=== PATIENT | male | born 1945 | race Caucasian/White ===

== ENCOUNTER → 2021-01-27 00:42 | Outpatient (CLI) | payer MEDICARE, OTHER, SELFPAY ==
[2021-01-27 20:54] LABS: SARS-CoV-2 RNA PCR Negative
== END ==
PROVIDERS: PCP Internal Medicine; Visit Provider Internal Medicine Gastroenterology
DX: Z01.812 Encounter for preprocedural laboratory examination (principal); Z20.822 Contact with and (suspected) exposure to COVID-19
CPT/HCPCS: C9803; U0003; U0005

== ENCOUNTER 2021-01-30 01:18 | Day surgery (SDC) | payer MEDICARE, OTHER, SELFPAY ==
[2021-01-18 10:09] VITALS: BMI 35.1
[2021-01-30 06:59] VITALS: BP 181/84; PULSE 74; RESP 16; TEMP 36.5; O2SAT 95; BMI 35.1
[2021-01-30] MEDS: LACTATED RINGERS 1,000 ML 150 ML IV CONT (07:19)
--- NOTE | 2021-01-30 07:23 | PM.HPGS ---
History of Present Illness History of Present Illness Consent: Risks, benefits, and alternatives have been discussed and questions answered. Patient agrees to proceed with procedure. Chief complaint: hx colon CA Narrative: Graham Torres is a 75 year old male Here for colon cancer screening. He has a history of having had colon cancer many years ago. Review of Systems Review of Systems: All systems reviewed & are unremarkable except as noted in HPI and below PMFSH Past Medical History Medical History History of colon cancer in adulthood History of prostate cancer Irritable bowel syndrome with constipation Family History Family History Other Diabetes mellitus Family history of malignant neoplasm Social History Social History Smoking packs per day: 1 Smoking cigarettes per day: 20.0 Years smoked: 25 Smoking pack-years: 25.00 Smoking status: Former smoker Tobacco type: cigarettes Alcohol intake: never Substance use: never Substance use type: does not use Living arrangements: with family Spiritual care concerns: No Meds Home Medications and Allergies Home Medications Medication Instructions Recorded Confirmed Type aspirin 81 mg tablet,delayed 81 mg PO DAILY 12/05/20 01/30/21 History release carvedilol 25 mg tablet 25 mg PO Q12H 12/05/20 01/30/21 History finasteride 5 mg tablet 5 mg PO DAILY 12/05/20 01/30/21 History lisinopril 10 mg tablet 10 mg PO BID 12/05/20 01/30/21 History warfarin 5 mg tablet 5 mg PO USEASDIRECTD 12/05/20 01/30/21 History warfarin 7.5 mg tablet 7.5 mg PO WEEKLY 12/05/20 01/30/21 History flecainide 100 mg PO BID 01/18/21 01/30/21 History Allergies Allergy/AdvReac Type Severity Reaction Status Date / Time No Known Allergies Allergy SEE NOTES Verified 01/30/21 06:59 Vital Signs Vital Signs - 24 hr 01/30/21 06:59 Temperature 36.5 C Pulse Rate 74 Respiratory Rate 16 Blood Pressure 181/84 H Pulse Oximetry 95 Exam Const: General: alert Orientation/consciousness: patient oriented x3 Resp: Auscultation: clear to auscultation bilaterally Cardio: Rhythm: regular rhythm GI: GI Palp: Yes Soft to palpation and No Tenderness to palpation present (GI) Neuro: General: patient oriented x3 Assessment and Plan Assessment and plan (1) Colon cancer screening: Code(s): Z12.11 - Encounter for screening for malignant neoplasm of colon Status: Acute Assessment and Plan: Colonoscopy with possible biopsy or polypectomy or cautery or injection of substances.
--- NOTE | 2021-01-30 07:37 | WPDANESEPPF ---
Anes - Initial Pre Proc Eval Procedure: Operation Date: 01/30/21 08:00 Proposed Procedures p Screening Colonoscopy - Sarath Reid MD Date/Time: 01/30/21 07:37 Surgeon: Sarath Reid MD Pre Op Diagnosis: hx colon CA Patient Data Age: 75 Gender: M Height: 5 ft 10 in Weight: 111.1 kg Last Vital Signs Temp 97.7 F 01/30/21 06:59 Pulse 74 01/30/21 06:59 Resp 16 01/30/21 06:59 BP 181/84 H 01/30/21 06:59 Pulse Ox 95 01/30/21 06:59 Allergies Allergy/AdvReac Type Severity Reaction Status Date / Time No Known Allergies Allergy SEE NOTES Verified 01/30/21 06:59 Home Medications Medication Instructions Recorded Confirmed Type aspirin 81 mg tablet,delayed 81 mg PO DAILY 12/05/20 01/30/21 History release carvedilol 25 mg tablet 25 mg PO Q12H 12/05/20 01/30/21 History finasteride 5 mg tablet 5 mg PO DAILY 12/05/20 01/30/21 History lisinopril 10 mg tablet 10 mg PO BID 12/05/20 01/30/21 History warfarin 5 mg tablet 5 mg PO USEASDIRECTD 12/05/20 01/30/21 History warfarin 7.5 mg tablet 7.5 mg PO WEEKLY 12/05/20 01/30/21 History flecainide 100 mg PO BID 01/18/21 01/30/21 History Laboratory Tests 01/30/21 07:10 PT Pending INR Pending Patient hx anesthesia problems: none Family hx anesthesia problems: none PMFSH Past Medical History Medical History History of colon cancer in adulthood History of prostate cancer Irritable bowel syndrome with constipation Family History Family History Other Diabetes mellitus Family history of malignant neoplasm Social History Social History Smoking packs per day: 1 Smoking cigarettes per day: 20.0 Years smoked: 25 Smoking pack-years: 25.00 Smoking status: Former smoker Tobacco type: cigarettes Alcohol intake: never Substance use: never Substance use type: does not use Living arrangements: with family Spiritual care concerns: No Anes - Eval Final PreProcedure Day of Procedure 01/30/21 07:37 Patient weight: obese Heart: regular rate and rhythm Lungs: clear to auscultation Airway: Mallampati scale class II Neurological: alert and oriented Last oral intake: >/= 8 hours ASA classification: III Emergent: no Anesthetic plan: proceed Anesthesia type and monitoring: general GIVS and standard monitoring Informed Consent: The patient's anesthetic plan and its attendant risks and benefits were discussed with the patient/family/POA. Questions were solicited and answers provided to the satisfaction of the patient/family/POA.
[2021-01-30 07:38] LABS: INR 1.3; Prothrombin Time 16.9 Seconds (11.1-14.7)
[2021-01-30 08:16] VITALS: BP 152/75; PULSE 69; RESP 18; O2SAT 98
[2021-01-30 08:26] VITALS: BP 154/65; PULSE 70; RESP 16; O2SAT 96
[2021-01-30 08:36] VITALS: BP 153/68; PULSE 68; RESP 18; O2SAT 98
== END 2021-01-30 08:58 | disposition home or self-care (01) ==
PROVIDERS: PCP Internal Medicine; Visit Provider Internal Medicine Gastroenterology
PROC: 0DJD8ZZ Inspection of Lower Intestinal Tract, Via Natural or Artificial Opening Endoscopic (ICD-10-PCS; CPT 45378; principal; 2021-01-30 08:00)
DX: Z12.11 Encounter for screening for malignant neoplasm of colon (principal); D12.5 Benign neoplasm of sigmoid colon; Z85.038 Personal history of other malignant neoplasm of large intestine; K58.1 Irritable bowel syndrome with constipation; I48.91 Unspecified atrial fibrillation; Z79.01 Long term (current) use of anticoagulants; Z85.46 Personal history of malignant neoplasm of prostate; Z87.891 Personal history of nicotine dependence
CPT/HCPCS: 45385; 36415; 85610; 88305; J2704; J7120

== ENCOUNTER 2022-05-28 09:22 | Outpatient (CLI) | payer MEDICARE, OTHER, SELFPAY ==
--- NOTE | 2022-05-28 10:07 | ECHO_ITS ---
Patient Info Name: Graham Torres Age: 77 years : 1945 Gender: Male Ht: 70 in Wt: 251 lbs BSA: 2.41 m2 HR: 56 bpm BP: 178 / 97 mmHg Heart Rhythm: Sinus Rhythm Exam Date: 05/28/2022 10:31 AM Exam Location: [facility] Patient Status: Outpatient Admit Date: 05/28/2022 Staff Ordering Physician: Placido Mauro MD Metaphysicist: [address] [place] RDCS Attending Provider: Placido Mauro MD Referring Physician: Nj MESA; Exam Type: CA echo doppler color flow Study Info Indications R60.0 - Localized edema Complete two-dimensional, color flow and Doppler transthoracic echocardiogram is performed. Summary 1. Complete two-dimensional, color flow and Doppler transthoracic echocardiogram is performed. 2. Left ventricular chamber dimension is normal. 3. Left ventricular systolic function is normal, estimated at 60-65%. 4. There is mildly increased left ventricular wall thickness. 5. Left ventricular septal wall motion is abnormal with septal motion related to bundle branch block. 6. The left ventricular diastolic function is grade I diastolic dysfunction. 7. Left atrial chamber dimension is moderately enlarged. 8. There is trace mitral valve regurgitation. 9. There is trace tricuspid valve regurgitation. 10. Unable to estimate PA systolic pressure due to poor spectral resolution of tricuspid regurgitant jet velocity. 11. There is no aortic valve stenosis. Left Ventricle Left ventricular chamber dimension is normal. Left ventricular systolic function is normal, estimated at 60-65%. There is mildly increased left ventricular wall thickness. Left ventricular septal wall motion is abnormal with septal motion related to bundle branch block. The left ventricular diastolic function is grade I diastolic dysfunction. Right Ventricle Right ventricular chamber dimension is normal. Right ventricular systolic function is normal. Left Atria Left atrial chamber dimension is moderately enlarged. Right Atria Right atrial chamber dimension is mildly enlarged. Aortic Valve The aortic valve is not well visualized. There is no aortic valve stenosis. There is no aortic valve regurgitation. Pulmonic Valve The pulmonic valve is not well visualized. Mitral Valve The mitral valve has thickened leaflets. There is trace mitral valve regurgitation. The mitral valve annulus is mildly calcified. Tricuspid Valve The tricuspid valve leaflets are normal. There is trace tricuspid valve regurgitation. Unable to estimate PA systolic pressure due to poor spectral resolution of tricuspid regurgitant jet velocity. Pericardium/Pleural The pericardium appears normal. There is no pericardial effusion. Aorta The aortic root size at the sinus of Valsalva is normal. There is mild aortic atherosclerosis. Left Ventricular Outflow Tract Name Value Normal LVOT 2D LVOT Diameter 2.0 cm LVOT Doppler LVOT Peak Gradient 3 mmHg LVOT Mean Gradient 2 mmHg LVOT VTI 22 cm LVOT VTI/AV VTI Ratio 0.7
== END 2022-05-28 09:23 | disposition home or self-care (01) ==
LOC: ANHCARD 09:24
PROVIDERS: PCP Family Medicine; Visit Provider Family Medicine
DX: R60.0 Localized edema (principal); I51.7 Cardiomegaly
CPT/HCPCS: 93306

== ENCOUNTER 2023-04-24 03:42 | Day surgery (SDC) | payer MEDICARE, OTHER, SELFPAY ==
[2023-04-14 13:44] VITALS: BMI 35.9
--- NOTE | 2023-04-18 10:35 | PC.NURSE ---
SPOKE WITH PT. REGARDING WARFARIN, WILL HOLD AFTER DOSE ON 04/19/2023.
--- NOTE | 2023-04-23 16:21 | P.HP_ITS ---
History of Present Illness History of Present Illness Consent: Risks, benefits, and alternatives have been discussed and questions answered. Patient agrees to proceed with procedure. Chief complaint: anemia Narrative: Graham Torres is a 77 year old male Who was referred for investigation of severe anemia. His hemoglobin is 8.7 and hematocrit 29.5 he states that he was not aware of the anemia. He has a history of colon cancer. He has states he is here only for EGD because there was a suspicion that he might be losing blood. He believes it has been 3 years since his last colonoscopy [facility]. Review of Systems Review of Systems: All systems reviewed & are unremarkable except as noted in HPI and below PMFSH Past Medical History Medical History A-fib Gout History of colon cancer in adulthood History of prostate cancer Hypertension Irritable bowel syndrome with constipation Testosterone deficiency Venous stasis Surgical History Surgical History H/O knee surgery History of appendectomy Hx of cholecystectomy Family History Family History Other Diabetes mellitus Family history of malignant neoplasm Social History Social History Smoking packs per day: 1 Smoking cigarettes per day: 20.0 Years smoked: 25 Smoking pack-years: 25.00 Smoking status: Former smoker Tobacco type: cigarettes Alcohol intake: current Alcohol use details: [facility] beer Substance use: never Substance use type: does not use Living arrangements: with family Occupation/Education: retired Spiritual care concerns: No Agree to blood products: Yes Meds Home Medications and Allergies Home Medications Medication Instructions Recorded Confirmed Type aspirin 81 mg tablet,delayed 81 mg PO BID 12/05/20 04/14/23 History release (Adult Aspirin Regimen) carvedilol 25 mg tablet 25 mg PO Q12H 12/05/20 04/24/23 History lisinopril 10 mg tablet 10 mg PO BID 12/05/20 04/14/23 History warfarin 5 mg tablet 5 mg PO DAILY 12/05/20 04/24/23 History flecainide 100 mg tablet 100 mg PO BID 01/18/21 04/14/23 History furosemide 40 mg tablet (Lasix) 40 mg PO QAM #30 tabs 05/20/22 04/14/23 Rx finasteride 5 mg tablet 5 mg PO DAILY #90 tabs 01/15/23 04/14/23 Rx Allergies Allergy/AdvReac Type Severity Reaction Status Date / Time clindamycin AdvReac Mild Hives Verified 04/24/23 08:42 Exam Const: General: alert Orientation/consciousness: patient oriented x3 Resp: Auscultation: clear to auscultation bilaterally Cardio: Rhythm: regular rhythm GI: GI Palp: Yes Soft to palpation and No Tenderness to palpation present (GI) Neuro: General: patient oriented x3 Assessment and Plan Assessment and plan (1) Anemia: Code(s): D64.9 - Anemia, unspecified Status: Acute Assessment and Plan: EGD with possible biopsy or dilatation or cautery.Colonoscopy with possible biopsy or polypectomy or cautery or injection of substances.
[2023-04-24 08:44] VITALS: BP 127/55; PULSE 60; RESP 18; TEMP 36.2; O2SAT 98
[2023-04-24] MEDS: LACTATED RINGERS 1,000 ML 150 ML IV CONT (08:56)
--- NOTE | 2023-04-24 09:25 | WPDANESEPPF ---
Anes - Initial Pre Proc Eval Procedure: Operation Date: 04/24/23 10:45 Proposed Procedures p Esophagogastroduodenoscopy - Sarath Reid MD Date/Time: 04/24/23 09:25 Surgeon: Sarath Reid MD Pre Op Diagnosis: anemia Patient Data Age: 77 Gender: M Height: 1.78 m Weight: 110.9 kg Last Vital Signs Temp 97.2 F L 04/24/23 08:44 Pulse 60 04/24/23 08:44 Resp 18 04/24/23 08:44 BP 127/55 L 04/24/23 08:44 Pulse Ox 98 04/24/23 08:44 O2 Del Method Room Air 04/24/23 08:44 Allergies Allergy/AdvReac Type Severity Reaction Status Date / Time clindamycin AdvReac Mild Hives Verified 04/24/23 08:42 Home Medications Medication Instructions Recorded Confirmed Type aspirin 81 mg tablet,delayed 81 mg PO BID 12/05/20 04/14/23 History release (Adult Aspirin Regimen) carvedilol 25 mg tablet 25 mg PO Q12H 12/05/20 04/24/23 History lisinopril 10 mg tablet 10 mg PO BID 12/05/20 04/14/23 History warfarin 5 mg tablet 5 mg PO DAILY 12/05/20 04/24/23 History flecainide 100 mg tablet 100 mg PO BID 01/18/21 04/14/23 History furosemide 40 mg tablet (Lasix) 40 mg PO QAM #30 tabs 05/20/22 04/14/23 Rx finasteride 5 mg tablet 5 mg PO DAILY #90 tabs 01/15/23 04/14/23 Rx Patient hx anesthesia problems: none Family hx anesthesia problems: none Results Review: All pre-operative results and documents have been reviewed as part of the pre-operative evaluation. [facility] Past Medical History Medical History (Updated 04/23/23 @ 16:21 by Sarath Reid MD) A-fib Gout History of colon cancer in adulthood History of prostate cancer Hypertension Irritable bowel syndrome with constipation Testosterone deficiency Venous stasis Surgical History Surgical History H/O knee surgery History of appendectomy Hx of cholecystectomy Family History Family History Other Diabetes mellitus Family history of malignant neoplasm Social History Social History Smoking packs per day: 1 Smoking cigarettes per day: 20.0 Years smoked: 25 Smoking pack-years: 25.00 Smoking status: Former smoker Tobacco type: cigarettes Alcohol intake: current Alcohol use details: occ beer Substance use: never Substance use type: does not use Living arrangements: with family Occupation/Education: retired Spiritual care concerns: No Agree to blood products: Yes Anes - Eval Final PreProcedure Day of Procedure 04/24/23 09:25 Patient weight: obese Heart: regular rate and rhythm Lungs: clear to auscultation Airway: Mallampati scale class III Neurological: alert and oriented Last oral intake: >/= 8 hours ASA classification: III Emergent: no Anesthetic plan: proceed Anesthesia type and monitoring: general GIVS and standard monitoring Results Review: All pre-operative results and documents have been reviewed as part of the pre-operative evaluation. Informed Consent: The patient's anesthetic plan and its attendant risks and benefits were discussed with the patient/family/POA. Questions were solicited and answers provided to the satisfaction of the patient/family/POA.
[2023-04-24 10:34] VITALS: BP 97/49; PULSE 62; RESP 17; O2SAT 98
[2023-04-24 10:44] VITALS: BP 109/56; PULSE 60; RESP 20; O2SAT 98
[2023-04-24 10:54] VITALS: BP 144/63; PULSE 61; RESP 23; O2SAT 97
== END 2023-04-24 11:03 | disposition home or self-care (01) ==
PROVIDERS: PCP Family Medicine; Visit Provider Internal Medicine Gastroenterology
PROC: 0DJ08ZZ Inspection of Upper Intestinal Tract, Via Natural or Artificial Opening Endoscopic (ICD-10-PCS; CPT 43235; principal; 2023-04-24 10:45)
DX: K25.9 Gastric ulcer, unspecified as acute or chronic, without hemorrhage or perforation (principal); D64.9 Anemia, unspecified; I10 Essential (primary) hypertension; I48.91 Unspecified atrial fibrillation; M10.9 Gout, unspecified; Z79.82 Long term (current) use of aspirin; Z85.038 Personal history of other malignant neoplasm of large intestine; Z87.891 Personal history of nicotine dependence; Z79.01 Long term (current) use of anticoagulants; Z85.46 Personal history of malignant neoplasm of prostate; E66.9 Obesity, unspecified; Z68.35 Body mass index [BMI] 35.0-35.9, adult
CPT/HCPCS: 43239; 88305; 88342; J2704; J7120

== ENCOUNTER 2023-04-30 12:04 | Outpatient (CLI) | payer MEDICARE, OTHER, SELFPAY ==
--- NOTE | 2023-04-30 13:35 | ECG_ITS ---
Measurements Intervals [place] Rate: 57 P: -20 ND: 138 QRS: 20 QRSD: 116 T: 38 QT: 470 QTc: 460 Interpretive Statements SINUS BRADYCARDIA INTRAVENTRICULAR CONDUCTION DELAY EARLY PRECORDIAL R/S TRANSITION CONSIDER INFERIOR INFARCT, AGE INDETERMINATE BASELINE ARTIFACT- I, II, III, AVR, AVL, AVF, V1-V6 ABNORMAL ECG NO PREVIOUS ECG AVAILABLE FOR COMPARISON Electronically Signed On 04-30-2023 16:15:44 CDT by Vinayak Caldwell D.O.
[2023-04-30 14:23] LABS: Basophils Absolute Auto 0.1 K/mm3 (0.0-0.1); Basophils Percent Auto 0.7 % (0.2-1.2); Eosinophils Absolute Auto 0.4 K/mm3 (0-0.3); Eosinophils Percent Auto 5.1 % (0-4.4); Hematocrit 29.2 % (42.0-52.0); Hemoglobin 8.4 g/dL (14.0-18.0); Immature Granulocyte Absolute 0.03 K/mm3 (0.00-0.031); Immature Granulocyte Percent A 0.4 % (0-0.5); Lymphocytes Absolute Auto 1.27 K/mm3 (0.9-3.2); Lymphocytes Percent Auto 15.8 % (18.3-44.2); Mean Corpuscular HGB Conc 28.8 g/dl (32-36); Mean Corpuscular Hemoglobin 24.8 pg (26-34); Mean Corpuscular Volume 86.1 fl (80-100); Mean Platelet Volume 10.4 fl (7.4-10.4); Monocytes Absolute Auto 0.7 K/mm3 (0.1-0.6); Monocytes Percent Auto 8.7 % (2.6-8.5); Neutrophils Absolute Auto 5.6 K/mm3 (1.3-6.7); Neutrophils Percent Auto 69.3 % (45.5-73.1); Platelet Count Result 312 k/mm3 (150-375); Red Blood Count 3.39 M/mm3 (4.6-6.20); Red Cell Distribution Width 15.7 % (11.5-14.5)
[2023-04-30 14:32] LABS: Anion Gap 7 mmol/L (8-16); Blood Urea Nitrogen 20 mg/dL (9-20); Calcium 8.8 mg/dL (8.4-10.2); Carbon Dioxide 31 mmol/L (22-30); Chloride 104 mmol/L (98-107); Estimated Glomerular Filt Rate 42; Glucose 113 mg/dL (65-110); Potassium 4.3 mmol/L (3.4-5.0); Sodium 142 mmol/L (137-145)
[2023-04-30 14:33] LABS: INR 1.6; Prothrombin Time 20.6 Seconds (11.1-14.7)
[2023-04-30 14:47] LABS: Hemoglobin A1C 5.6 % (<5.7)
[2023-04-30 15:43] LABS: Platelet Estimate Adequate (Adequate)
[2023-04-30 15:44] LABS: Anisocytosis 2+ (NORMAL); Microcytosis 1+ (NORMAL); Schistocytes None Seen (NORMAL)
[2023-04-30 15:45] LABS: Hypochromasia 1+ (NORMAL)
[2023-04-30 17:07] LABS: Urine Cotinine NEGATIVE
== END 2023-04-30 12:05 | disposition home or self-care (01) ==
LOC: ANHSURGERY 12:09
PROVIDERS: Anesthesiology; PCP Family Medicine; Visit Provider Orthopaedic Surgery
DX: Z01.818 Encounter for other preprocedural examination (principal); M16.12 Unilateral primary osteoarthritis, left hip; R00.1 Bradycardia, unspecified; I45.89 Other specified conduction disorders; R94.31 Abnormal electrocardiogram [ECG] [EKG]; Z79.01 Long term (current) use of anticoagulants
CPT/HCPCS: 80048; 80307; 82040; 83036; 85025; 85610; 85730; 86850; 86900; 86901; 87081; 93005

== ENCOUNTER 2023-06-05 11:10 | Outpatient (RCR) | payer MEDICARE, OTHER, SELFPAY ==
[2023-03-31 11:03] LABS: INR 3.2; Prothrombin Time 35.6 Seconds (11.1-14.7)
[2023-05-20 10:47] LABS: INR 4.1; Prothrombin Time 43.1 Seconds (11.1-14.7)
[2023-06-05 12:13] LABS: INR 2.6; Prothrombin Time 29.7 Seconds (11.1-14.7)
== END 2023-06-29 23:59 | disposition home or self-care (01) ==
LOC: ANHLAB 11:10
PROVIDERS: PCP Family Medicine; Visit Provider Specialist
DX: Z51.81 Encounter for therapeutic drug level monitoring (principal); I48.91 Unspecified atrial fibrillation; Z79.01 Long term (current) use of anticoagulants
CPT/HCPCS: 36415; 85610

== ENCOUNTER 2023-06-18 00:13 | Day surgery (SDC) | payer MEDICARE, OTHER, SELFPAY ==
[2023-06-13 11:46] VITALS: BMI 37.9
--- NOTE | 2023-06-17 18:23 | PM.HPGS ---
History of Present Illness History of Present Illness Consent: Risks, benefits, and alternatives have been discussed and questions answered. Patient agrees to proceed with procedure. Chief complaint: anemia Narrative: Graham Torres is a 78 year old male Referred for investigation of anemia and follow-up of gastric ulcers found 2 months ago. Review of Systems Review of Systems: All systems reviewed & are unremarkable except as noted in HPI and below PMFSH Past Medical History Medical History A-fib Gout History of colon cancer in adulthood History of prostate cancer Hypertension Irritable bowel syndrome with constipation Testosterone deficiency Venous stasis Surgical History Surgical History H/O knee surgery History of appendectomy Hx of cholecystectomy Family History Family History Other Diabetes mellitus Family history of malignant neoplasm Social History Social History Smoking packs per day: 1 Smoking cigarettes per day: 20.0 Years smoked: 25 Smoking pack-years: 25.00 Smoking status: Former smoker Tobacco type: cigarettes Smoking end date: 10/06/91 Additional smoking assessment comments: USED CHEWING TOBACCO FOR A TOOTH ACHE ABOUT ONE YEAR AGO. DENIES ANY FORM O Alcohol intake: current Drinks per week: 2 Alcohol use details: occ beer Substance use: never Substance use type: does not use Lack of Transportation: No Lack of Food: Never True Current Housing: I Have Housing Concerned About Future Housing: No Difficulty Paying Gas/Electric Bills: No Difficulty Paying for Meds: No Currently Unemployed: No Education: High School Diploma/GED Difficulty w/ Childcare or Family Care: No Living arrangements: with family Occupation/Education: retired Gender identity (if verbalized by the patient): Male Spiritual care concerns: No Agree to blood products: Yes Meds Home Medications and Allergies Home Medications Medication Instructions Recorded Confirmed Type carvedilol 25 mg tablet 25 mg PO Q12H 12/05/20 06/18/23 History warfarin 5 mg tablet 5 mg PO HS 12/05/20 06/18/23 History pantoprazole 40 mg tablet,delayed 40 mg PO QAM #30 tabs 04/24/23 06/13/23 Rx release amlodipine 5 mg tablet 5 mg PO DAILY 04/30/23 06/13/23 History calcium carbonate 600 mg calcium 600 mg PO DAILY 04/30/23 06/13/23 History (1,500 mg) tablet (Calcium) cholecalciferol (vitamin D3) 50 50 mcg PO DAILY 04/30/23 06/13/23 History mcg (2,000 unit) tablet lisinopril 40 mg tablet 40 mg PO DAILY 04/30/23 06/13/23 History flecainide 100 mg tablet 100 mg PO BID 05/06/23 06/18/23 History Iron (ferrous sulfate) 45 mg PO DAILY 06/13/23 06/13/23 History finasteride 5 mg tablet 5 mg PO HS 06/13/23 06/13/23 History Allergies Allergy/AdvReac Type Severity Reaction Status Date / Time clindamycin Allergy Mild Hives Verified 06/18/23 10:09 Exam Const: General: alert Orientation/consciousness: patient oriented x3 Resp: Auscultation: clear to auscultation bilaterally Cardio: Rhythm: regular rhythm GI: GI Palp: Yes Soft to palpation and No Tenderness to palpation present (GI) Neuro: General: patient oriented x3 Assessment and Plan Assessment and plan (1) Gastric ulcer: Code(s): K25.9 - Gastric ulcer, unspecified as acute or chronic, without hemorrhage or perforation Status: Acute Assessment and Plan: EGD with possible biopsy or dilatation or cautery. (2) Anemia: Code(s): D64.9 - Anemia, unspecified Status: Acute Assessment and Plan: Colonoscopy with possible biopsy or polypectomy or cautery or injection of substances.
[2023-06-18 10:11] VITALS: BP 128/84; PULSE 73; RESP 18; TEMP 36; O2SAT 100
--- NOTE | 2023-06-18 10:16 | WPDANESEPPF ---
Anes - Initial Pre Proc Eval Procedure: Operation Date: 06/18/23 11:30 Proposed Procedures p Esophagogastroduodenoscopy & Colonoscopy - Sarath Reid MD Date/Time: 06/18/23 10:16 Surgeon: Sarath Reid MD Pre Op Diagnosis: anemia Patient Data Age: 78 Gender: M Height: 1.75 m Weight: 113.9 kg Last Vital Signs Temp 36.0 C L 06/18/23 10:11 Pulse 73 06/18/23 10:11 Resp 18 06/18/23 10:11 BP 128/84 06/18/23 10:11 Pulse Ox 100 06/18/23 10:11 O2 Del Method Room Air 06/18/23 10:11 Allergies Allergy/AdvReac Type Severity Reaction Status Date / Time clindamycin Allergy Mild Hives Verified 06/18/23 10:09 Home Medications Medication Instructions Recorded Confirmed Type carvedilol 25 mg tablet 25 mg PO Q12H 12/05/20 06/18/23 History warfarin 5 mg tablet 5 mg PO HS 12/05/20 06/18/23 History pantoprazole 40 mg tablet,delayed 40 mg PO QAM #30 tabs 04/24/23 06/13/23 Rx release amlodipine 5 mg tablet 5 mg PO DAILY 04/30/23 06/13/23 History calcium carbonate 600 mg calcium 600 mg PO DAILY 04/30/23 06/13/23 History (1,500 mg) tablet (Calcium) cholecalciferol (vitamin D3) 50 50 mcg PO DAILY 04/30/23 06/13/23 History mcg (2,000 unit) tablet lisinopril 40 mg tablet 40 mg PO DAILY 04/30/23 06/13/23 History flecainide 100 mg tablet 100 mg PO BID 05/06/23 06/18/23 History Iron (ferrous sulfate) 45 mg PO DAILY 06/13/23 06/13/23 History finasteride 5 mg tablet 5 mg PO HS 06/13/23 06/13/23 History Patient hx anesthesia problems: none Family hx anesthesia problems: other Results Review: All pre-operative results and documents have been reviewed as part of the pre-operative evaluation. [facility] Past Medical History Medical History A-fib Gout History of colon cancer in adulthood History of prostate cancer Hypertension Irritable bowel syndrome with constipation Testosterone deficiency Venous stasis Surgical History Surgical History H/O knee surgery History of appendectomy Hx of cholecystectomy Family History Family History Other Diabetes mellitus Family history of malignant neoplasm Social History Social History Smoking packs per day: 1 Smoking cigarettes per day: 20.0 Years smoked: 25 Smoking pack-years: 25.00 Smoking status: Former smoker Tobacco type: cigarettes Smoking end date: 10/06/91 Additional smoking assessment comments: USED CHEWING TOBACCO FOR A TOOTH ACHE ABOUT ONE YEAR AGO. DENIES ANY FORM O Alcohol intake: current Drinks per week: 2 Alcohol use details: occ beer Substance use: never Substance use type: does not use Lack of Transportation: No Lack of Food: Never True Current Housing: I Have Housing Concerned About Future Housing: No Difficulty Paying Gas/Electric Bills: No Difficulty Paying for Meds: No Currently Unemployed: No Education: High School Diploma/GED Difficulty w/ Childcare or Family Care: No Living arrangements: with family Occupation/Education: retired Gender identity (if verbalized by the patient): Male Spiritual care concerns: No Agree to blood products: Yes Anes - Eval Final PreProcedure Day of Procedure 06/18/23 10:16 Patient weight: obese Heart: regular rate and rhythm Lungs: decreased breath sounds Airway: Mallampati scale class II Neurological: alert and oriented Last oral intake: >/= 8 hours ASA classification: III Emergent: no Anesthetic plan: proceed Anesthesia type and monitoring: general GIVS and standard monitoring Results Review: All pre-operative results and documents have been reviewed as part of the pre-operative evaluation. Informed Consent: The patient's anesthetic plan and its attendant risks and benefits were discussed with bhargav
[2023-06-18] MEDS: LACTATED RINGERS 1,000 ML 150 ML IV CONT (10:32)
--- NOTE | 2023-06-18 11:25 | SUR.OPER ---
EGD end: 1117 Colonoscopy start: 112
[2023-06-18 11:34] VITALS: BP 121/45; PULSE 68; RESP 20; O2SAT 100
[2023-06-18 11:44] VITALS: BP 118/43; PULSE 64; RESP 20; O2SAT 100
[2023-06-18 11:54] VITALS: BP 162/71; PULSE 68; RESP 20; O2SAT 100
== END 2023-06-18 12:12 | disposition home or self-care (01) ==
PROVIDERS: Visit Provider Internal Medicine Gastroenterology
PROC: 0DJ08ZZ Inspection of Upper Intestinal Tract, Via Natural or Artificial Opening Endoscopic (ICD-10-PCS; CPT 43235; principal; 2023-06-18 11:30)
DX: D64.9 Anemia, unspecified (principal); K63.3 Ulcer of intestine; Z85.038 Personal history of other malignant neoplasm of large intestine; Z98.0 Intestinal bypass and anastomosis status; Z90.49 Acquired absence of other specified parts of digestive tract; Z87.11 Personal history of peptic ulcer disease; I48.91 Unspecified atrial fibrillation; I10 Essential (primary) hypertension; K58.1 Irritable bowel syndrome with constipation; Z85.46 Personal history of malignant neoplasm of prostate; Z79.01 Long term (current) use of anticoagulants; Z87.891 Personal history of nicotine dependence; E66.9 Obesity, unspecified; Z68.37 Body mass index [BMI] 37.0-37.9, adult
CPT/HCPCS: 45380; 43239; 87081; 88305; J2704; J7120

== ENCOUNTER 2023-07-07 10:46 | Outpatient (CLI) | payer MEDICARE, OTHER, SELFPAY ==
[2023-07-07 11:15] LABS: Basophils Percent Auto 0.1 % (0.2-1.2); Eosinophils Percent Auto 0.1 % (0-4.4); Hematocrit 31.6 % (42.0-52.0); Hemoglobin 9.5 g/dL (14.0-18.0); Immature Granulocyte Absolute 0.07 K/mm3 (0.00-0.031); Immature Granulocyte Percent A 0.7 % (0-0.5); Lymphocytes Absolute Auto 0.58 K/mm3 (0.9-3.2); Lymphocytes Percent Auto 5.8 % (18.3-44.2); Mean Corpuscular HGB Conc 30.1 g/dl (32-36); Mean Corpuscular Hemoglobin 25.6 pg (26-34); Mean Corpuscular Volume 85.2 fl (80-100); Mean Platelet Volume 10.1 fl (7.4-10.4); Monocytes Absolute Auto 0.5 K/mm3 (0.1-0.6); Monocytes Percent Auto 4.8 % (2.6-8.5); Neutrophils Absolute Auto 8.9 K/mm3 (1.3-6.7); Neutrophils Percent Auto 88.5 % (45.5-73.1); Platelet Count Result 365 k/mm3 (150-375); Red Blood Count 3.71 M/mm3 (4.6-6.20); Red Cell Distribution Width 17.7 % (11.5-14.5)
[2023-07-07 11:22] LABS: Anisocytosis 1+ (NORMAL); Hypochromasia 1+ (NORMAL); Platelet Estimate Adequate (Adequate); Schistocytes None Seen (NORMAL)
[2023-07-07 11:23] LABS: Ovalocytes 1+ (NORMAL); Poikilocytosis 1+ (NORMAL)
[2023-07-07 13:22] LABS: Iron 13 ug/dL (49-181)
[2023-07-07 13:24] LABS: Alanine Aminotransferase 16 U/L (6-50); Alkaline Phosphatase 68 U/L (38-126); Anion Gap 11 mmol/L (8-16); Aspartate Amino Transferase 19 U/L (17-59); Bilirubin,Total 0.6 mg/dL (0.2-1.3); Blood Urea Nitrogen 48 mg/dL (9-20); Calcium 8.9 mg/dL (8.4-10.2); Carbon Dioxide 25 mmol/L (22-30); Chloride 102 mmol/L (98-107); Estimated Glomerular Filt Rate 35; Glucose 97 mg/dL (65-110); Potassium 4.4 mmol/L (3.4-5.0); Sodium 138 mmol/L (137-145)
[2023-07-07 13:46] LABS: Percent Iron Saturation 4 % (20-50)
[2023-07-07 14:41] LABS: Folic Acid 13.4 ng/mL (2.76->20)
[2023-07-09 16:30] LABS: Albumin 3.4 g/dL (3.8-4.8); Alpha 1 Globulin 0.4 g/dL (0.2-0.3); Beta 1 Globulin 0.5 g/dL (0.4-0.6); Gamma Globulin 0.9 g/dL (0.8-1.7); Protein, Total 6.6 g/dL (6.1-8.1)
[2023-07-10 06:34] LABS: Methylmalonic Acid 457 nmol/L (87-318)
[2023-07-15 18:43] LABS: Soluble Transferrin Receptor 3.17 mg/L (0.76-1.76)
== END 2023-07-07 10:47 | disposition home or self-care (01) ==
LOC: ANHLAB 10:49
PROVIDERS: Visit Provider Internal Medicine Hematology & Oncology
DX: D64.9 Anemia, unspecified (principal)
CPT/HCPCS: 36415; 80053; 82607; 82728; 82746; 83540; 83550; 83921; 84155; 84165; 84238; 85025

== ENCOUNTER 2023-09-05 12:36 | Outpatient (CLI) | payer MEDICARE, OTHER, SELFPAY ==
[2023-09-05 13:27] LABS: Anion Gap 8 mmol/L (8-16); Blood Urea Nitrogen 17 mg/dL (9-20); Calcium 9.1 mg/dL (8.4-10.2); Carbon Dioxide 30 mmol/L (22-30); Chloride 104 mmol/L (98-107); Estimated Glomerular Filt Rate 49; Glucose 104 mg/dL (65-110); Phosphorus 4.1 mg/dL (2.5-4.5); Potassium 4.3 mmol/L (3.4-5.0); Sodium 142 mmol/L (137-145)
[2023-09-05 13:32] LABS: Creatinine Urine 95.1 mg/dL; Total Protein Urine Random 15 mg/dL; Ur Ttl Prot Creatinine Ratio 0.16 mg/mg (0-0.20)
[2023-09-05 13:39] LABS: Parathyroid Intact 63.3 pg/mL (7.5-53.5)
[2023-09-05 15:01] LABS: Vitamin D 25 Hydroxy 26.5 ng/mL
== END 2023-09-05 12:37 | disposition home or self-care (01) ==
PROVIDERS: Visit Provider Internal Medicine Nephrology
DX: E55.9 Vitamin D deficiency, unspecified (principal); N25.81 Secondary hyperparathyroidism of renal origin; N18.32 Chronic kidney disease, stage 3b; I12.9 Hypertensive chronic kidney disease with stage 1 through stage 4 chronic kidney disease, or unspecified chronic kidney disease
CPT/HCPCS: 36415; 80069; 82306; 82570; 83970; 84156; 85610

== ENCOUNTER 2023-10-14 10:08 | Outpatient (RCR) | payer MEDICARE, OTHER, SELFPAY ==
[2023-07-25 09:48] LABS: INR 3.4; Prothrombin Time 37.2 Seconds (11.1-14.7)
[2023-09-05 13:28] LABS: INR 2.6; Prothrombin Time 30.1 Seconds (11.1-14.7)
[2023-10-14 10:35] LABS: Prothrombin Time 34.1 Seconds (11.1-14.7)
== END 2023-10-23 23:59 | disposition home or self-care (01) ==
LOC: ANHLAB 10:08
PROVIDERS: PCP Family Medicine; Visit Provider Specialist
DX: Z51.81 Encounter for therapeutic drug level monitoring (principal); I48.91 Unspecified atrial fibrillation; Z79.01 Long term (current) use of anticoagulants
CPT/HCPCS: 36415; 85610

== ENCOUNTER 2024-01-19 10:40 | Outpatient (CLI) | payer MEDICARE, OTHER, SELFPAY ==
--- NOTE | 2024-01-19 11:49 | ECG_ITS ---
SEE SCANNED COPY FOR CONFIRMED REPORT MTDD
[2024-01-19 12:10] LABS: Basophils Absolute Auto 0.1 K/mm3 (0.0-0.1); Basophils Percent Auto 0.7 % (0.2-1.2); Eosinophils Absolute Auto 0.5 K/mm3 (0-0.3); Eosinophils Percent Auto 6.8 % (0-4.4); Hematocrit 39.1 % (42.0-52.0); Hemoglobin 12.2 g/dL (14.0-18.0); Immature Granulocyte Absolute 0.02 K/mm3 (0.00-0.031); Immature Granulocyte Percent A 0.3 % (0-0.5); Lymphocytes Absolute Auto 1.06 K/mm3 (0.9-3.2); Lymphocytes Percent Auto 13.9 % (18.3-44.2); Mean Corpuscular HGB Conc 31.2 g/dl (32-36); Mean Corpuscular Hemoglobin 30.7 pg (26-34); Mean Corpuscular Volume 98.2 fl (80-100); Mean Platelet Volume 10.2 fl (7.4-10.4); Monocytes Absolute Auto 0.6 K/mm3 (0.1-0.6); Monocytes Percent Auto 7.7 % (2.6-8.5); Neutrophils Absolute Auto 5.4 K/mm3 (1.3-6.7); Neutrophils Percent Auto 70.6 % (45.5-73.1); Platelet Count Result 226 k/mm3 (150-375); Red Blood Count 3.98 M/mm3 (4.6-6.20); White Blood Count 7.6 K/mm3 (4.5-10.0)
[2024-01-19 12:32] LABS: Albumin Level 4.2 g/dL (3.5-5.1); Anion Gap 4 mmol/L (4-12); Blood Urea Nitrogen 24 mg/dL (9-20); Calcium 9.6 mg/dL (8.4-10.2); Carbon Dioxide 33 mmol/L (22-30); Chloride 105 mmol/L (98-107); Estimated Glomerular Filt Rate 49; Glucose 98 mg/dL (65-110); Potassium 4.8 mmol/L (3.4-5.0); Sodium 142 mmol/L (137-145)
[2024-01-19 12:33] LABS: Hemoglobin A1C 5.3 % (<5.7)
[2024-01-19 12:39] LABS: Urine Cotinine NEGATIVE
== END 2024-01-19 10:41 | disposition home or self-care (01) ==
LOC: ANHSURGERY 10:46
PROVIDERS: PCP Family Medicine; Visit Provider Orthopaedic Surgery
DX: Z01.818 Encounter for other preprocedural examination (principal); M16.12 Unilateral primary osteoarthritis, left hip
CPT/HCPCS: 36415; 80048; 80307; 82040; 83036; 85025; 87081; 93005

== ENCOUNTER 2024-01-30 12:45 | Outpatient (CLI) | payer MEDICARE, OTHER, SELFPAY ==
[2024-01-30 14:21] LABS: Vitamin D 25 Hydroxy 38.4 ng/mL
== END 2024-01-30 12:46 | disposition home or self-care (01) ==
PROVIDERS: PCP Family Medicine; Visit Provider Orthopaedic Surgery
DX: E55.9 Vitamin D deficiency, unspecified (principal)
CPT/HCPCS: 36415; 82306; 85610

== ENCOUNTER 2024-02-10 00:16 | Day surgery (SDC) | payer MEDICARE, OTHER, SELFPAY ==
[2024-01-19 10:55] VITALS: BMI 37.0
--- NOTE | 2024-01-19 11:26 | PC.NURSE ---
Report to the Outpatient Waiting Room, entrance under the green pavilion located off [facility], at time __0700 on date __02/10/24 . Planned Procedure Time: ___0900 . Time changes happen often and if your time is changed the preop area will call you the afternoon before. - You and your visitor will be asked to self-screen and do not enter if you have any COVID symptoms. - A mask is optional within the hospital at this time. Patients may have clear liquids (water, carbonated beverages, clear teas, apple juice) until 3 hours prior to surgery( 6:00AM) with a maximum of 20 ounces. - No food from midnight until time of surgery - Infants may have breast milk until 4 hours before surgery, formula 6 hours prior to surgery. - Children will be allowed to drink immediately following surgery. If applicable, please bring a bottle or sippy cup to assist with drinking. Juice, water, soda, and popsicles are readily available. For infants on formula, please bring formula the day of surgery. Pacifiers are allowed. Take the following medications with a SIP of water the morning of surgery: _AMLODIPINE,CARVEDILOL,FLECAINIDE DO NOT STOP ANY OF YOUR OTHER PRESCRIPTION MEDICATIONS PRIOR TO SURGERY ?EXCEPT THE FOLLOWING Medications to discontinue per physician __HOLD WARFARIN 5 DAYS PRE OP PER DR SERRANO,LAST DOSE02/04/24.HOLD ALL VITAMINS AND SUPPLEMENTS 3 DAYS PRE OP, LAST DOSE 02/06/24 Please no make-up, nail ukrainian, hairspray, perfume, deodorant, or body powder the day of surgery. No jewelry (including any body piercings) or valuables the day of surgery, leave them at home. Please take a shower or bath the night before, or the morning of, surgery with an antibacterial soap. Wear comfortable, loose fitting clothing. Children are encouraged to wear pajamas. - Jewelry must be removed prior to entering the operating room. Rings and piercings that are not removed may be cut off. - The hospital will not accept responsibility for valuables. - Please leave all valuables, including medications, at home the day of surgery. If you are going home after surgery, a licensed road driver must drive you home. - NO public transportation without another adult if you receive anesthesia. - We recommend that an adult stay with you for 24 hours following discharge. - We also recommend that you do not drive, make important decision, drink alcoholic beverages, or take any drugs that were not prescribed by your health care provider for at least 24 hours after your discharge time. Follow any additional instructions given to you from your surgeon. If you or anyone in your household have experienced Covid symptoms in the past week, please notify your surgeon or the nurse liaison at the phone number below for possible testing. VERBAL AND WRITTEN instructions given to ___PATIENT and asked if any additional questions and then verbalized understanding. Patient advised to call surgeon office or pre surgery nurse liaison [phone] if any additional questions.
[2024-01-19 11:45] VITALS: BP 126/71; PULSE 55; RESP 18; TEMP 36.7; O2SAT 97
--- NOTE | 2024-02-09 16:48 | PM.IMHP ---
H&P: HPI History of Present Illness Date/Time: 02/09/24 16:48 Chief Complaint: Advanced osteoarthritis left Narrative: patient is a 78-year-old gentleman was been suffering terribly due to extremely advanced osteoarthritis of the left. He had x-rays April 14 which showed advanced [id number] type 1 osteoarthritis large central subchondral cyst in the femoral head and prominent sclerotic changes and flattening of the superior femoral head. X-rays from January 06 of this year showed minimal change. Mild further flattening of femoral head is present. Patient has lost a little bit of weight. His 5 ft 63391 lb BMI of 35.7. His past medical history significant for anemia diagnosed last fall that caused this surgery would be postponed. His hemoglobin was 9.10 July 2023. Had extensive workup including EGD which showed no ulcer. Colonoscopy showed some superficial ulcers. Patient also has history of colon cancer. Dr. Alatorre concluded that he had iron deficiency anemia and this was treated with supplementation and most recent hemoglobin on January 18 his 12.2 and this has been stable. Patient has history of atrial fibrillation. He takes Coumadin chronically which will be held 5 days before surgery. Patient has 2+ pedal edema bilaterally 1+ pretibial edema bilaterally and this is chronic and he has been evaluated by Dr. Crane in preparation for surgery and his edema is thought primarily due to chronic venous stasis. Echocardiogram at [facility] 2021 showed ejection fraction between 60 and 65%. Patient has chronic kidney disease. His creatinine is 1.4 BUN 24 GFR 49. Because of his kidney disease and chronic lower extremity edema it is felt that nonsteroidal anti-inflammatory medication would be associated with excessive risk and therefore will not be used for heterotopic ossification prophylaxis after surgery but instead patient is to receive a single dose of 800 cGy of external beam radiation to the soft tissues about the hip the afternoon prior to his a.m. surgery. Patient also has history of severe gout affecting his ankles that has responded to oral steroids in the past he takes allopurinol chronically. [facility] Past Medical History Medical History (Updated 02/09/24 @ 16:55 by Jermaine Leon MD) A-fib Gout History of colon cancer in adulthood History of prostate cancer Hypertension Irritable bowel syndrome with constipation Testosterone deficiency Venous stasis Surgical History Surgical History (Updated 01/07/24 @ 09:45 by Elisabeth Jules CMA) H/O knee surgery bilateral TKA History of appendectomy History of colon resection Hx of cholecystectomy Family History Family History Other Diabetes mellitus Family history of malignant neoplasm Social History Social History (Updated 01/07/24 @ 09:47 by Elisabeth Jules [facility]) Smoking packs per day: 1 Smoking cigarettes per day: 20.0 Years smoked: 25 Smoking pack-years: 25.00 Smoking status: Former smoker Tobacco type: cigarettes Smoking end date: 10/06/91 Additional smoking assessment comments: DENIES ANY FORM OF TOBACCO USE Alcohol intake: former Substance use: never Substance use type: does not use Do You Feel Safe in your Home?: Yes Lack of Transportation: No Lack of Food: Never True Current Housing: I Have Housing Concerned About Future Housing: No Difficulty Paying Gas/Electric Bills: No Difficulty Paying for Meds: No Currently Unemployed: No Education: High School Diploma/GED Difficulty w/ Childcare or Family Care: No Living arrangements: with family Occupation/Education: retired Gender identity (if verbalized by the patient): Male Spiritual care concerns: No Agree to blood products: Yes Meds Home Medications and Allergies Home Medications Medication Instructions Recorded Confirmed Type carvedilol 25 mg tablet 25 mg
[2024-02-10] VITALS (17 sets, daily range): BP systolic 104–172; BP diastolic 54–94; PULSE 52–82; RESP 12–20; TEMP 35.6–36.6; O2SAT 94–99
--- NOTE | ~2024-02-10 | XR_ITS ---
EXAMINATION: XR surgery orthopedic DATE: 02/10/2024 11:18 INDICATION: Anterior approach total left hip arthroplasty. TECHNIQUE: 2 intraoperative fluoroscopic views of left hip were obtained. I was not present. Fluorosc opy exposure time was 45 seconds. COMPARISON: Left hip radiographs 01/07/2024 FINDINGS: There is a total left hip arthroplasty in near-anatomic alignment. No fracture. IMPRESSION: 1. Total left hip arthroplasty in near-anatomic alignment. Reviewed, dictated and finalized at location A.
--- NOTE | ~2024-02-10 | XR_ITS ---
EXAMINATION: XR hip LT 1V w AP pelvis DATE: 02/10/2024 12:33 INDICATION: Anterior approach left total hip arthroplasty. TECHNIQUE: Anteroposterior and cross-table lateral views of the left hip were obtained. COMPARISON: 01/07/2024 FINDINGS: Interval placement of a noncemented left total hip arthroplasty which appears well seated in near-raji tomic alignment. The acetabular component is affixed with a single screw. No fracture. Mild to modera te osteoarthritis at the right hip and bilateral sacroiliac joints. Severe lower lumbar spondylosis. A few phleboliths in the left pelvis. IMPRESSION: 1. Expected appearance of a left total hip arthroplasty negative for postoperative purposes. Reviewed, dictated and finalized at location A. IMPRESSION: 1. Expected appearance of a left total hip arthroplasty negative for postoperat bettina purposes.
[2024-02-10] MEDS: ACETAMINOPHEN 500 MG TABLET 1000 MG PO ×2 (06:25→18:24)
[2024-02-10] MEDS: TRANEXAMIC ACID 1,000MG/ISO100 1,000 MG/100 ML BAG 200 MG IVPB (06:30)
[2024-02-10] MEDS: VANCOMYCIN 1,500 MG/NS 500 ML BAG 250 MG IVPB (06:30)
[2024-02-10] MEDS: LACTATED RINGERS 1,000 ML 30 ML IV CONT ×2 (06:30→12:02)
[2024-02-10 06:58] LABS: INR 1.4; Prothrombin Time 17.8 Seconds (11.1-14.7)
--- NOTE | 2024-02-10 06:58 | WPDHPUPDATE1 ---
History and Physical Update Update Date/Time: 02/10/24 06:58 History and Physical has been reviewed, including an updated exam of the patient. There are NO changes in the patient's condition. Risks, benefits, and alternatives have been discussed and questions answered. Patient agrees to proceed with procedure.
[2024-02-10 06:59] LABS: Partial Thromboplastin Time 33.4 Seconds (22.3-36.8)
--- NOTE | 2024-02-10 07:17 | WPDANESEPPF ---
Anes - Initial Pre Proc Eval Procedure: Operation Date: 02/10/24 07:30 Proposed Procedures p Left Total Hip Arthroplasty, Direct Anterior Approach - Jermaine Leon MD Date/Time: 02/10/24 07:17 Surgeon: Jermaine Leon MD Pre Op Diagnosis: oa left hip Patient Data Age: 78 Gender: M Height: 1.74 m Weight: 112.4 kg Last Vital Signs Temp 97.7 F 02/10/24 06:02 Pulse 57 L 02/10/24 06:02 Resp 18 02/10/24 06:02 BP 128/58 L 02/10/24 06:02 Pulse Ox 97 02/10/24 06:02 O2 Del Method Room Air 02/10/24 06:02 Allergies Allergy/AdvReac Type Severity Reaction Status Date / Time clindamycin Allergy Mild Hives Verified 02/10/24 06:09 Home Medications Medication Instructions Recorded Confirmed Type carvedilol 25 mg tablet 25 mg PO Q12H 12/05/20 02/10/24 History warfarin 5 mg tablet 5 mg PO HS 12/05/20 02/10/24 History amlodipine 5 mg tablet 5 mg PO DAILY 04/30/23 02/10/24 History calcium carbonate (Calcium 600) 600 mg PO DAILY 04/30/23 02/10/24 History cholecalciferol (vitamin D3) 50 50 mcg PO DAILY 04/30/23 02/10/24 History mcg (2,000 unit) tablet lisinopril 40 mg tablet 40 mg PO DAILY 04/30/23 02/10/24 History flecainide 100 mg tablet 100 mg PO BID 05/06/23 02/10/24 History finasteride 5 mg tablet 5 mg PO HS 06/13/23 02/10/24 History allopurinol 100 mg tablet 100 mg PO DAILY 01/07/24 02/10/24 History ascorbate calcium (vitamin C) 500 500 mg PO DAILY 01/07/24 02/10/24 History mg tablet ferrous sulfate 325 mg (65 mg 325 mg PO DAILY 01/07/24 02/10/24 History iron) tablet (Feosol) mecobalamin (vitamin B12) 1,000 1,000 mcg PO DAILY 01/07/24 02/10/24 History mcg lozenges Laboratory Tests 02/10/24 06:20 PT 17.8 H Seconds (11.1-14.7) INR 1.4 APTT 33.4 Seconds (22.3-36.8) Patient hx anesthesia problems: none Family hx anesthesia problems: none Results Review: All pre-operative results and documents have been reviewed as part of the pre-operative evaluation. [facility] Past Medical History Medical History (Updated 02/09/24 @ 16:55 by Jermaine Leon MD) A-fib Gout History of colon cancer in adulthood History of prostate cancer Hypertension Irritable bowel syndrome with constipation Testosterone deficiency Venous stasis Surgical History Surgical History (Updated 01/07/24 @ 09:45 by Elisabeth Jules CMA) H/O knee surgery bilateral TKA History of appendectomy History of colon resection Hx of cholecystectomy Family History Family History Other Diabetes mellitus Family history of malignant neoplasm Social History Social History (Updated 01/07/24 @ 09:47 by Elisabeth Jules CMA) Smoking packs per day: 1 Smoking cigarettes per day: 20.0 Years smoked: 25 Smoking pack-years: 25.00 Smoking status: Former smoker Tobacco type: cigarettes Smoking end date: 10/06/91 Additional smoking assessment comments: DENIES ANY FORM OF TOBACCO USE Alcohol intake: former Substance use: never Substance use type: does not use Do You Feel Safe in your Home?: Yes Lack of Transportation: No Lack of Food: Never True Current Housing: I Have Housing Concerned About Future Housing: No Difficulty Paying Gas/Electric Bills: No Difficulty Paying for Meds: No Currently Unemployed: No Education: High School Diploma/GED Difficulty w/ Childcare or Family Care: No Living arrangements: with family Occupation/Education: retired Gender identity (if verbalized by the patient): Male Spiritual care concerns: No Agree to blood products: Yes Anes - Eval Final PreProcedure Day of Procedure 02/10/24 07:17 Patient weight: obese Airway: Mallampati scale class III ASA classification: III Anesthesia type and monitoring: general ETT and standard monitoring Results Review: All pre-operative results and documents have been reviewed as part of the pre-operative
[2024-02-10] MEDS: ceFAZolin 2 GM/D5W 50 ML 2 GM/50 ML BAG IVPB ×3 (07:45→22:33)
[2024-02-10] MEDS: SODIUM CHLORIDE 0.9% IV 38.7 ML, MORPHINE SULFATE INJ (*CRX) 2 MG, ROPivacaine HCL 1% 2... INFILTRATE (08:29)
[2024-02-10] MEDS: ceFAZolin SODIUM 1 GM VIAL 3 GM (08:30)
[2024-02-10] MEDS: ceFAZolin SODIUM 1 GM VIAL 2 GM IV PUSH (11:07)
[2024-02-10] MEDS: TRANEXAMIC ACID 1,000 MG/10 ML AMPUL 1000 MG IV PUSH (11:18)
--- NOTE | 2024-02-10 11:58 | W.PM.PROC2 ---
Procedure Note - Detailed Date of Procedure 02/10/24 Pre-op Diagnosis oa left hip Post-op Diagnosis Same Procedure Performed Left total hip arthroplasty direct anterior approach Surgeon Jermaine Leon MD Environmental Resource Specialist Angela Roberts Anesthesia General Description of Procedure Patient was brought to the operating room and general anesthesia was administered. He received 2 g of Ancef weight based vancomycin 1 g of TXA preoperatively. Soft roll was applied the feet boots applied he was transferred to the OSI Wilson table and the left hip prepped draped usual fashion. A 10 cm longitudinal incision was made starting 3 cm lateral to the ASIS. Dissection was carried down to the fascia of the tensor fascia ernst which was longitudinally incised and interval between tensor fascia ernst muscle and rectus femoris developed. Crossing branches of ascending lateral femoral circumflex vessels were ligated with suture divided. Ileal capsule layers was elevated off the anterior capsule an anterior retractor placed. Hip abducted internally rotated and the gluteus minimus elevated off the lateral capsule. Inverted T capsulotomy was made the femoral neck osteotomy was made according to preop templating. The femoral head was removed. It measured 52 mm diameter. It was severely arthritic as was the acetabulum. Labrum was excised. The leg was externally rotated extended after confirming proper neck cut under fluoro and the interval between conjoined tendon and piriformis was incised which allowed the piriformis to flipped posteriorly. The leg back horizontal position the acetabulum was exposed. We medialized with the 44 Reamer and reamed up to a size 55 and lightly reamed with a 56. The 56 trial was snug. The 56 pinnacle cup was impacted at 40? of abduction and anteversion such that the anterior shell was just under the anterior rim and the posterior shell was flush with the posterior rim. Excellent Press-Fit was achieved. Single screw placed in the ilium for fixation which also achieved excellent purchase the and the 36 inner diameter polyethylene liner placed. The leg was externally rotated extended and we broached up to a size 7 and found there was still torsional play with the 7 broach. We broached to an 8 which was rock-solid. We trialed with the-2 head and we were about 2 or 3 mm shorter and offset appeared to be slightly diminished compared to the other side. I felt we would have the option of going with a longer head certainly and there was ample play on Shuck. We calcar planed and recheck for complete torsional stability of the 8 broach which was present and we impacted the high offset 8 Actis stem which achieved an excellent Press-Fit no cracks in the calcar. We trialed with a 1.5 and this equalized leg lengths and had appropriate soft tissue tension and excellent stability. The stainless steel 1.5 head was impacted on the trunnion after thorough irrigation of the wound with Ancef solution hip reduced stability reconfirmed the capsulotomy repaired with 1. Vicryl. Local anesthetic cocktail was injected in the periarticular soft tissues. Fascia closed with running 1. Vicryl drain deep in the subcu skin closed with 2-0 subcutaneous Vicryl and glue EBL was 350 cc. He received 125 back as Cell Saver. Two additional g of Ancef and 1 g of TXA were given time wound closure. I felt the bone quality was excellent we will allow him to be weight-bearing as tolerated postoperatively. Was transferred postop recovery room stable condition. No known complications. [facility] Billing Surgery - Charge Forward: Surgery Billing (Left total hip replacement)
--- NOTE | 2024-02-10 14:34 | PCPTNOTE ---
Attempted PT evaluation, pt too tired to participate. Will follow
--- NOTE | 2024-02-10 14:34 | PCOTNOTE ---
Attempted OT evaluation, family and patient refuse at this time stating too tired and groggy. Patient presents with shutting and opening eyes. Family states has been unable to stay awake. Will follow.
[2024-02-10] MEDS: SODIUM CHLORIDE 0.9% IV 1,000 ML 125 ML IV CONT (15:22)
--- NOTE | 2024-02-10 15:48 | PM.PNORT ---
Progress Note: A&P Assessment and Plan (1) Status post total hip replacement, left: Code(s): Z96.642 - Presence of left artificial hip joint Status: Acute Assessment and Plan: Patient is doing well. He denies having any pain he refused pain medication earlier. He has had 250 cc of urine over the last 3-4 hours. We will discontinue the Natarajan catheter. Mobilize as tolerated. Subjective Subjective Date/Time Seen: 02/10/24 15:48 Objective Data Vital Signs Vital Signs: Vital Signs - 24 hr 02/10/24 06:02 02/10/24 12:02 02/10/24 12:15 Temperature 36.5 C 36.2 C L Pulse Rate 57 L 52 L 58 L Respiratory Rate 18 12 12 Blood Pressure 128/58 L 104/64 115/61 Pulse Oximetry 97 98 98 Oxygen Delivery Room Air Simple Face Mask Simple Face Mask Oxygen Flow Rate 8 8 02/10/24 12:30 02/10/24 12:45 02/10/24 13:00 Temperature 36.1 C L Pulse Rate 56 L 55 L 60 Respiratory Rate 12 12 12 Blood Pressure 163/80 H 149/54 H 145/58 H Pulse Oximetry 98 98 99 Oxygen Delivery Simple Face Mask Nasal Cannula Nasal Cannula Oxygen Flow Rate 8 2 2 02/10/24 13:15 02/10/24 13:40 02/10/24 13:55 Temperature 35.7 C L 35.6 C L Pulse Rate 62 60 60 Respiratory Rate 12 18 18 Blood Pressure 132/82 172/86 H 162/94 H Pulse Oximetry 99 98 98 Oxygen Delivery Nasal Cannula Oxygen Flow Rate 2 02/10/24 14:25 02/10/24 15:06 Temperature 35.7 C L 35.6 C L Pulse Rate 60 63 Respiratory Rate 18 18 Blood Pressure 166/75 H 167/93 H Pulse Oximetry 98 94 Oxygen Delivery Oxygen Flow Rate Intake/Output Intake/Output: Intake & Output 02/07/24 02/08/24 02/09/24 02/10/24 23:59 23:59 23:59 23:59 Intake Total 450 Output Total 500 Balance -50 Meds/Results Medications: Active Medications Generic Name Dose Route Start Last Admin Trade Name Freq PRN Reason Stop Dose Admin Acetaminophen 1,000 mg 02/10/24 13:21 02/10/24 15:21 Acetaminophen 500 Mg Tablet PO Not Given Q6HR [facility] Allopurinol 100 mg 02/11/24 09:00 Allopurinol 100 Mg Tablet PO DAILY [facility] Amlodipine Besylate 5 mg 02/11/24 09:00 Amlodipine Besylate 5 Mg Tablet PO DAILY [facility] Ascorbic Acid 500 mg 02/11/24 09:00 Ascorbic Acid 500 Mg Tablet PO DAILY [facility] Carvedilol 25 mg 02/10/24 17:00 Carvedilol 25 Mg Tablet PO BIDWM [facility] Cefdinir 300 mg 02/11/24 09:00 Cefdinir 300 Mg Capsule PO Q12HR [facility] Cyanocobalamin 1,000 mcg 02/11/24 09:00 Cyanocobalamin 1,000 Mcg Tablet PO DAILY [facility] Enoxaparin Sodium 40 mg 02/11/24 06:00 Enoxaparin 40 Mg/0.4 Ml Syringe SUB-Q Q24H [facility] Famotidine 20 mg 02/10/24 21:00 Famotidine 20 Mg Tablet PO Q12HR [facility] Ferrous Sulfate 325 mg 02/11/24 12:00 Ferrous Sulfate [address] PO DAILY@1200 [facility] Finasteride 5 mg 02/10/24 21:00 Finasteride 5 Mg Tablet PO HS [facility] Flecainide Acetate 100 mg 02/10/24 21:00 Flecainide Acetate 100 Mg Tablet PO Q12HR [facility] Vancomycin HCl 1,000 mg in 250 mls @ 250 mls/hr 02/10/24 18:00 Vancomycin 1,000 Mg/Ns 250 Ml IVPB 02/11/24 06:59 Q12H [facility] Sodium Chloride 1,000 mls @ 125 mls/hr 02/10/24 13:21 02/10/24 15:22 Normal Saline Iv IV CONT 125 mls/hr .Q8H [facility] Administration Cefazolin Sodium 2 gm in 50 mls @ 100 mls/hr 02/10/24 15:00 02/10/24 15:22 Ancef 2 Gm/D5w 50 Ml IVPB 02/11/24 07:29 100 mls/hr Q8H [facility] Administration Morphine Sulfate 2 mg 02/10/24 13:21 Morphine Sulfate (*Crx) 2 Mg/Ml Inj IV PUSH Q1H PRN Pain Rated 7-10 Naloxone HCl 0.1 mg 02/10/24 13:21 Naloxone Hcl 0.4 Mg/Ml Vial IV PUSH Q2M PRN Opiate Reversal Oxycodone HCl 5 mg 02/10/24 13:21 02/10/24 15:21 Oxycodone Hcl (*Crx) 5 Mg Tab Ir PO Not Given Q4HR [facility] Oxycodone HCl 5 mg 02/10/24 13:21 Oxycodone Hcl (*Crx) 5 Mg Tab Ir PO Q4H PRN Pain Rated 4-10 Polyethylene Glycol 17 gm 02/11/24 09:00 Polyethyle
[2024-02-10] MEDS: carvediloL 25 MG TABLET PO (18:24)
[2024-02-10] MEDS: SENNA/DOCUSATE SODIUM TABLET 2 TAB PO (18:24)
[2024-02-10] MEDS: oxyCODONE HCL (*CRX) 5 MG TAB IR PO ×2 (18:24→20:51)
[2024-02-10] MEDS: VANCOMYCIN 1,000 MG/NS 250 ML 1,000 MG/250 ML BAG 250 MG IVPB (18:25)
--- NOTE | 2024-02-10 20:26 | WPDCN ---
Assessment and Plan Assessment and plan (1) Osteoarthritis of left hip: Qualifiers: Osteoarthritis type: primary Qualified Code(s): M16.12 - Unilateral primary osteoarthritis, left hip Code(s): M16.12 - Unilateral primary osteoarthritis, left hip Status: Acute Assessment and Plan: Postoperative day 0 status post left total hip arthroplasty direct anterior approach. Wound care, pain control, and DVT prophylaxis deferred to Dr. Leon. (2) Paroxysmal atrial fibrillation: Code(s): I48.0 - Paroxysmal atrial fibrillation Status: Acute Assessment and Plan: Continue flecainide. (3) Chronic anticoagulation: Code(s): Z79.01 - alf (current) use of anticoagulants Status: Acute Assessment and Plan: Resume warfarin and monitor INR daily. (4) Benign prostatic hyperplasia: Code(s): N40.0 - Benign prostatic hyperplasia without lower urinary tract symptoms Status: Acute Assessment and Plan: Continue finasteride 5 mg at bedtime. P.r.n. bladder scan to rule urinary retention postoperatively. (5) Stage 3a chronic kidney disease: Code(s): N18.31 - Chronic kidney disease, stage 3a Status: Acute Assessment and Plan: Check chemistries in a.m.. Monitor I/O and daily weights. (6) Hypertension: Code(s): I10 - Essential (primary) hypertension Status: Acute Assessment and Plan: Blood pressures were reviewed and they have been a bit elevated postoperatively. Continue antihypertensives and continue to monitor closely. Plan Thank you for allowing us to participate in this patient's care. Please do not hesitate to contact us with any questions. HPI Data of Consult Date/Time: 02/10/24 22:00 Requesting Physician: Jermaine Leon MD Consult Narrative Reason for consult: Medical management Narrative: This is a 78-year-old male with osteoarthritis, hypertension, paroxysmal atrial fibrillation on chronic anticoagulation, gout, iron deficiency anemia, and benign prostatic hyperplasia the hospitalist service has been consulted for managing his medical conditions postoperatively. He presented today for elective left hip arthroplasty due to ongoing pain despite conservative outpatient treatment. His surgery was performed under general anesthesia with no immediate complications documented and an estimated blood loss of 350 mL with 125 mL back as Cell Saver. Postoperatively he has done quite well. He has been up with therapy with minimal pain. He has been eating and drinking okay. He denies paresthesias, skin color, and temperature changes distal to the surgical site. He also denies postoperative fever, chills, sweats, chest pain, shortness a breath, nausea, and vomiting. Regarding his chronic medical conditions, he believes they are well controlled on home medication. Review of Systems Review of Systems: 12 systems were reviewed and are negative except for as per HPI. [facility] Past Medical History Medical History (Updated 02/10/24 @ 20:44 by Abigail Hunt PA-C) Benign prostatic hyperplasia Chronic anticoagulation Colon cancer Gout Hypertension Irritable bowel syndrome with constipation Osteoarthritis Paroxysmal atrial fibrillation Peptic ulcer Prostate cancer Stage 3a chronic kidney disease Testosterone deficiency Transient ischemic attack Venous stasis Surgical History Surgical History (Updated 02/11/24 @ 01:04 by Abigail Hunt PA-C) History of appendectomy History of arthroplasty of right shoulder History of bilateral knee arthroplasty History of cholecystectomy History of colon resection History of tonsillectomy Family History Family History Other Diabetes mellitus Family history of malignant neoplasm Social History Social History (Updated 02/10/24 @ 20:45 by Abigail Hunt PA-C) Social History:
[2024-02-10] MEDS: FAMOTIDINE 20 MG TABLET PO (20:37)
[2024-02-10] MEDS: FINASTERIDE 5 MG TABLET PO (20:37)
[2024-02-10] MEDS: FLECAINIDE ACETATE 100 MG TABLET PO (20:38)
[2024-02-10] MEDS: WARFARIN (*PBKC) 7.5 MG TABLET PO (20:51)
[2024-02-11] VITALS (9 sets, daily range): BP systolic 126–168; BP diastolic 60–81; PULSE 61–81; RESP 16–18; TEMP 36.2–36.6; O2SAT 94–100
[2024-02-11] MEDS: ACETAMINOPHEN 500 MG TABLET 1000 MG PO ×2 (04:04→05:00)
[2024-02-11] MEDS: VANCOMYCIN 1,000 MG/NS 250 ML 1,000 MG/250 ML BAG 250 MG IVPB (05:00)
[2024-02-11] MEDS: oxyCODONE HCL (*CRX) 5 MG TAB IR PO ×2 (05:00→09:22)
[2024-02-11] MEDS: ceFAZolin 2 GM/D5W 50 ML 2 GM/50 ML BAG IVPB (06:38)
[2024-02-11] MEDS: ENOXAPARIN 40 MG/0.4 ML SYRINGE SUB-Q (06:38)
[2024-02-11 06:47] LABS: Basophils Percent Auto 0.1 % (0.2-1.2); Hematocrit 34.7 % (42.0-52.0); Hemoglobin 11.4 g/dL (14.0-18.0); Immature Granulocyte Absolute 0.06 K/mm3 (0.00-0.031); Immature Granulocyte Percent A 0.4 % (0-0.5); Lymphocytes Absolute Auto 0.65 K/mm3 (0.9-3.2); Lymphocytes Percent Auto 4.4 % (18.3-44.2); Mean Corpuscular HGB Conc 32.9 g/dl (32-36); Mean Corpuscular Hemoglobin 31.2 pg (26-34); Mean Corpuscular Volume 95.1 fl (80-100); Mean Platelet Volume 10.8 fl (7.4-10.4); Monocytes Percent Auto 6.9 % (2.6-8.5); Neutrophils Absolute Auto 12.9 K/mm3 (1.3-6.7); Neutrophils Percent Auto 88.2 % (45.5-73.1); Platelet Count Result 231 k/mm3 (150-375); Red Blood Count 3.65 M/mm3 (4.6-6.20); Red Cell Distribution Width 13.8 % (11.5-14.5); White Blood Count 14.7 K/mm3 (4.5-10.0)
[2024-02-11 06:53] LABS: Alanine Aminotransferase 14 U/L (6-50); Albumin Level 3.7 g/dL (3.5-5.1); Alkaline Phosphatase 86 U/L (38-126); Anion Gap 6 mmol/L (4-12); Aspartate Amino Transferase 25 U/L (17-59); Blood Urea Nitrogen 22 mg/dL (9-20); Calcium 8.6 mg/dL (8.4-10.2); Carbon Dioxide 26 mmol/L (22-30); Chloride 104 mmol/L (98-107); Estimated CRCL calculation 56 ml/min; Estimated Glomerular Filt Rate 59; Glucose 129 mg/dL (65-110); Magnesium 1.8 mg/dL (1.6-2.3); Potassium 4.4 mmol/L (3.4-5.0); Sodium 136 mmol/L (137-145)
[2024-02-11 06:57] LABS: INR 1.4; Prothrombin Time 18.1 Seconds (11.1-14.7)
--- NOTE | 2024-02-11 08:34 | P.PNAN_ITS ---
Anes - Prog Note Post-Op Date/Time: 02/11/24 08:34 Cardiovascular status: normal Respiratory status: normal Airway patency: baseline Mental status: baseline Post-Op hydration status: normal Vital Signs: Last Vital Signs Temp 36.3 C L 02/11/24 04:13 Pulse 79 02/11/24 04:13 Resp 16 02/11/24 04:13 BP 126/60 02/11/24 04:13 Pulse Ox 97 02/11/24 08:19 O2 Del Method Room Air 02/11/24 08:19 O2 Flow Rate 2 02/10/24 21:18 Pain Score (VAS): 1 I/O: Intake & Output 02/10/24 02/11/24 02/11/24 23:59 07:59 15:59 Intake Total 1550 400 Output Total 365 Balance 1550 35 Laboratory Tests 02/11/24 05:49 02/11/24 05:49 02/11/24 05:49 WBC 14.7 H RBC 3.65 L Hgb 11.4 L Hct 34.7 L MCV 95.1 MCH 31.2 MCHC 32.9 RDW 13.8 Plt Count 231 MPV 10.8 H Immature Gran % (Auto) 0.4 Neut % (Auto) 88.2 H Lymph % (Auto) 4.4 L [place] % (Auto) 6.9 Eos % (Auto) 0.0 Baso % (Auto) 0.1 L Lymph # (Auto) 0.65 L [place] # (Auto) 1.0 H Eos # (Auto) 0.0 Baso # (Auto) 0.0 Abs Immat Gran (auto) 0.06 H Absolute Neuts (auto) 12.9 H Absolute Nucleated RBC 0.000 Nucleated RBC % 0.0 PT 18.1 H INR 1.4 Sodium 136 L Potassium 4.4 Chloride 104 Carbon Dioxide 26 Anion Gap 6 BUN 22 H Creatinine 1.20 Estim Creat Clear Calc 56 Estimated GFR 59 Glucose 129 H Calcium 8.6 Magnesium 1.8 Total Bilirubin 1.0 Direct Bilirubin 0.0 AST 25 ALT 14 Alkaline Phosphatase 86 Total Protein 7.0 Albumin 3.7 Post-procedural complaints: none Patient Feedback: Patient satisfied with anesthetic care.
[2024-02-11] MEDS: FLECAINIDE ACETATE 100 MG TABLET PO (09:22)
[2024-02-11] MEDS: FAMOTIDINE 20 MG TABLET PO (09:22)
[2024-02-11] MEDS: CEFDINIR 300 MG CAPSULE PO (09:22)
[2024-02-11] MEDS: SENNA/DOCUSATE SODIUM TABLET 2 TAB PO (09:22)
[2024-02-11] MEDS: polyethylene glycoL 3350 17 GM POWD.PACK PO (09:22)
[2024-02-11] MEDS: ASCORBIC ACID 500 MG TABLET PO (09:23)
[2024-02-11] MEDS: allopurinoL 100 MG TABLET PO (09:23)
[2024-02-11] MEDS: CYANOCOBALAMIN 1,000 MCG TABLET 1000 MCG PO (09:23)
[2024-02-11] MEDS: amLODIPine BESYLATE 5 MG TABLET PO (09:23)
[2024-02-11] MEDS: CHOLECALCIFEROL 1,000 UNITS TABLET 2000 UNITS PO (09:23)
[2024-02-11] MEDS: carvediloL 25 MG TABLET PO (09:23)
--- NOTE | 2024-02-11 10:55 | PM.DS ---
DS: Admitting Diagnosis Discharge Date February 11, 2024 Admitting Diagnosis advanced osteoarthritis of the left hip DS: Discharge Diagnosis Discharge Diagnosis (1) Status post total hip replacement, left: Code(s): Z96.642 - Presence of left artificial hip joint Status: Acute DS: Summary Hospital Course Hospital Course: patient is a 78-year-old gentleman who was admitted on February 10, 2024 for direct anterior approach left total hip replacement. He has had an uneventful course postoperatively. He was kept on monitored bed because of his history of paroxysmal atrial fibrillation. He is on Coumadin chronically and this was held 5 days before surgery. The morning of surgery his protime was 17.9 and INR 1.4. His blood loss was mild 350 cc and he received 125 back as Cell Saver blood. This morning his hemoglobin is 11.4 representing mild acute blood loss anemia. His preop hemoglobin was in the 12 range. This morning his creatinine is down to 1.2 GFR 59 creatinine clearance 56. Preoperatively as GFR was 49 and creatinine 1.4. He has known chronic renal disease. We have avoided nonsteroidal anti-inflammatory medications because of his kidney disease. Because of the inability to use nonsteroidal anti-inflammatory medications in this gentleman, he did receive 1 dose of preoperative external beam radiation 800 cGy the afternoon before surgery for prophylaxis against heterotopic ossification. He is neurologically intact in the left lower extremity today and had been up several times to go to the bathroom and he is weight-bearing as tolerated with the walker with front wheels. Home health care has been arranged to draw daily INR until therapeutic. He is at risk for DVT. He has chronic 2+ edema in both legs which is have for the last year which reduces the sensitivity of detecting DVT in this gentleman and for this reason I have added bridging Lovenox which we started this morning at 40 mg subQ Q 24 hours and he will continue this at home. He will be sent home with 5 additional doses. He was given 7.5 mg of Coumadin last night. His normal dose is 5 mg. He will receive 7.5 mg again tonight. Home health will call me with the morning INR and I give recommendations each day on the appropriate Coumadin dose to take and whether not to continue the morning Lovenox shots. We will discontinue Lovenox once he is at or close to therapeutic range with his INR. Time Spent with Patient Time attestation: Total time spent providing and/or coordinating discharge services: DS: Data Data Completed and Pending Labs on day of discharge: Labs from last 24 hours 02/11/24 05:49 WBC 14.7 H RBC 3.65 L Hgb 11.4 L Hct 34.7 L MCV 95.1 MCH 31.2 MCHC 32.9 RDW 13.8 Plt Count 231 MPV 10.8 H Immature Gran % (Auto) 0.4 Neut % (Auto) 88.2 H Lymph % (Auto) 4.4 L [place] % (Auto) 6.9 Eos % (Auto) 0.0 Baso % (Auto) 0.1 L Lymph # (Auto) 0.65 L [place] # (Auto) 1.0 H Eos # (Auto) 0.0 Baso # (Auto) 0.0 Abs Immat Gran (auto) 0.06 H Absolute Neuts (auto) 12.9 H Absolute Nucleated RBC 0.000 Nucleated RBC % 0.0 PT 18.1 H INR 1.4 Sodium 136 L Potassium 4.4 Chloride 104 Carbon Dioxide 26 Anion Gap 6 BUN 22 H Creatinine 1.20 Estim Creat Clear Calc 56 Estimated GFR 59 Glucose 129 H Calcium 8.6 Magnesium 1.8 Total Bilirubin 1.0 Direct Bilirubin 0.0 AST 25 ALT 14 Alkaline Phosphatase 86 Total Protein 7.0 Albumin 3.7 Discharge Plan Discharge Patient Disposition: Home Health Service Discharge Instructions: KAY SERRANO M.D [facility] [address] [place] [address] [address] [place] [address] POST-OPERATIVE DISCHARGE INSTRUCTIONS ANTERIOR TOTAL HIP ARTHROPLASTY 1. Move toes/feet up and down every hour while awake. 2. Be up walking every hour while awake. 3. Use walker maritime officer if instructed to use walker maritime officer.When you are allowed to use the cane, use the c
--- NOTE | 2024-02-11 11:12 | PM.IMPN ---
Progress Note: A&P Assessment and Plan (1) Osteoarthritis of left hip: Qualifiers: Osteoarthritis type: primary Qualified Code(s): M16.12 - Unilateral primary osteoarthritis, left hip Code(s): M16.12 - Unilateral primary osteoarthritis, left hip Status: Acute Assessment and Plan: Postoperative day 1 status post left total hip arthroplasty with Dr. Leon. Wound care, pain control DVT prophylaxis -patient is to bridge from Lovenox back to his warfarin PT OT with home health (2) Paroxysmal atrial fibrillation: Code(s): I48.0 - Paroxysmal atrial fibrillation Status: Chronic Assessment and Plan: Continue flecainide. (3) Chronic anticoagulation: Code(s): Z79.01 - bolt cutter (current) use of anticoagulants Status: Chronic Assessment and Plan: Resume warfarin and monitor INR. To follow-up with ortho regarding bridging from Lovenox. (4) Benign prostatic hyperplasia: Code(s): N40.0 - Benign prostatic hyperplasia without lower urinary tract symptoms Status: Chronic Assessment and Plan: Continue finasteride 5 mg at bedtime. Voiding independently (5) Stage 3a chronic kidney disease: Code(s): N18.31 - Chronic kidney disease, stage 3a Status: Chronic Assessment and Plan: Kidney function at baseline (6) Hypertension: Code(s): I10 - Essential (primary) hypertension Status: Chronic Assessment and Plan: Continue lisinopril Plan Thank you for allowing us to participate in this patient's care. Please do not hesitate to contact us with any questions. Subjective Date/time seen: 02/11/24 11:12 Review of Systems Review of Systems: All systems reviewed & are unremarkable except as noted in HPI and below Exam Narrative: General: Well-developed male in the semi-De Leon position in bed in no distress. HEENT: PERRLA, EOMI. Sclera anicteric. Neck: Supple. Respiratory: Lungs are clear to auscultation bilaterally. Cardiovascular: RRR with S1-S2. Gastrointestinal: Abdomen is soft, nontender, and nondistended with positive bowel sounds. Skin: Warm and dry. Extremities: No cyanosis, clubbing, or edema. Radial and pedal pulses intact. Musculoskeletal: Left hip dressing is clean, dry, and intact. He is neurovascularly intact distal to the surgical site. Neurological: Alert and oriented x3. Cranial nerves 2-12 grossly intact. No gross focal deficits. Psychiatric: Pleasant and cooperative with normal mood and affect. Objective Data Vital Signs Vital Signs: Vital Signs - 24 hr 02/10/24 12:02 02/10/24 12:15 02/10/24 12:30 Temperature 97.2 F L Pulse Rate 52 L 58 L 56 L Respiratory Rate 12 12 12 Blood Pressure 104/64 115/61 163/80 H Pulse Oximetry 98 98 98 Oxygen Delivery Simple Face Mask Simple Face Mask Simple Face Mask Oxygen Flow Rate 8 8 8 02/10/24 12:45 02/10/24 13:00 02/10/24 13:15 Temperature 97.0 F L Pulse Rate 55 L 60 62 Respiratory Rate 12 12 12 Blood Pressure 149/54 H 145/58 H 132/82 Pulse Oximetry 98 99 99 Oxygen Delivery Nasal Cannula Nasal Cannula Nasal Cannula Oxygen Flow Rate 2 2 2 02/10/24 13:40 02/10/24 13:55 02/10/24 14:25 Temperature 96.2 F L 96.0 F L 96.2 F L Pulse Rate 60 60 60 Respiratory Rate 18 18 18 Blood Pressure 172/86 H 162/94 H 166/75 H Pulse Oximetry 98 98 98 Oxygen Delivery Oxygen Flow Rate 02/10/24 15:06 02/10/24 13:48 02/10/24 16:00 Temperature 96.0 F L Pulse Rate 63 63 74 Respiratory Rate 18 18 Blood Pressure 167/93 H Pulse Oximetry 94 94 Oxygen Delivery Nasal Cannula Oxygen Flow Rate 2 02/10/24 20:38 02/10/24 20:55 02/11/24 00:06 Temperature 97.9 F 97.8 F Pulse Rate 82 77 81 Respiratory Rate 20 18 Blood Pressure 167/84 H 139/81 Pulse Oximetry 97 94 Oxygen Delivery Oxygen Flow Rate 02/10/24 21:18 02/11/24 04:13 02/10/24 20:00 Temperature 97.4 F L Pul
== END 2024-02-11 12:30 | disposition home health service (06) ==
LOC: ANHSURGERY 05:50 → ANH3MEDSUR 13:22
PROVIDERS: Anesthesiology; Physician Assistant; PCP Family Medicine; Visit Provider Orthopaedic Surgery
PROC: (CPT 27130; principal; 2024-02-10 07:30)
DX: M16.12 Unilateral primary osteoarthritis, left hip (principal); I48.0 Paroxysmal atrial fibrillation; N40.0 Benign prostatic hyperplasia without lower urinary tract symptoms; I12.9 Hypertensive chronic kidney disease with stage 1 through stage 4 chronic kidney disease, or unspecified chronic kidney disease; N18.31 Chronic kidney disease, stage 3a; Z79.01 Long term (current) use of anticoagulants
CPT/HCPCS: 27130; 36415; 73501; 80048; 80076; 83735; 85025; 85610; 85730; 86850; 86900; 86901; 97110; 97161; 97165; 97530; 97535; 99199; A9270; C1776; J0171; J0690; J1170; J1596; J1650; J2270; J2405; J2704; J2795; J3010; J3370; J7030; J7120

== ENCOUNTER 2024-02-12 12:56 | Outpatient (RCR) | payer MEDICARE, OTHER, SELFPAY ==
[2024-02-12 13:34] LABS: Prothrombin Time 23.7 Seconds (11.1-14.7)
== END 2024-05-12 23:59 | disposition home or self-care (01) ==
LOC: ANHLAB 12:56
PROVIDERS: PCP Family Medicine; Visit Provider Orthopaedic Surgery
DX: I48.91 Unspecified atrial fibrillation (principal); Z96.642 Presence of left artificial hip joint
CPT/HCPCS: 36415; 85610

== ENCOUNTER 2024-02-16 12:37 | Outpatient (RCR) | payer MEDICARE, OTHER, SELFPAY ==
[2024-02-13 11:17] LABS: Prothrombin Time 23.8 Seconds (11.1-14.7)
[2024-02-16 13:30] LABS: INR 2.2; Prothrombin Time 25.9 Seconds (11.1-14.7)
== END 2024-05-13 23:59 | disposition home or self-care (01) ==
LOC: HOME HLTH 12:37
PROVIDERS: PCP Family Medicine; Visit Provider Orthopaedic Surgery
DX: Z47.1 Aftercare following joint replacement surgery (principal); I48.91 Unspecified atrial fibrillation; Z96.642 Presence of left artificial hip joint
CPT/HCPCS: 85610

== ENCOUNTER 2024-03-11 08:22 | Outpatient (RCR) | payer MEDICARE, OTHER, SELFPAY ==
[2023-12-19 13:48] LABS: INR 2.2; Prothrombin Time 26.1 Seconds (11.1-14.7)
[2024-01-12 09:08] LABS: INR 2.7; Prothrombin Time 31.1 Seconds (11.1-14.7)
[2024-01-30 13:55] LABS: INR 2.7
[2024-02-23 13:49] LABS: Prothrombin Time 33.4 Seconds (11.1-14.7)
== END 2024-03-18 09:00 | disposition home or self-care (01) ==
LOC: ANHLAB 08:22
PROVIDERS: PCP Family Medicine; Referring Provider Orthopaedic Surgery; Visit Provider Specialist
DX: Z51.81 Encounter for therapeutic drug level monitoring (principal); Z79.01 Long term (current) use of anticoagulants
CPT/HCPCS: 36415; 85610

== ENCOUNTER 2024-03-11 08:26 | Outpatient (CLI) | payer MEDICARE, OTHER, SELFPAY ==
[2024-03-11 09:40] LABS: Albumin Level 3.9 g/dL (3.5-5.1); Anion Gap 4 mmol/L (4-12); Blood Urea Nitrogen 21 mg/dL (9-20); Calcium 9.1 mg/dL (8.4-10.2); Carbon Dioxide 31 mmol/L (22-30); Chloride 107 mmol/L (98-107); Estimated Glomerular Filt Rate 54; Glucose 95 mg/dL (65-110); Phosphorus 3.8 mg/dL (2.5-4.5); Potassium 4.6 mmol/L (3.4-5.0); Sodium 142 mmol/L (137-145)
[2024-03-11 10:04] LABS: Creatinine Urine 99.6 mg/dL; Total Protein Urine Random 14 mg/dL; Ur Ttl Prot Creatinine Ratio 0.14 mg/mg (0-0.20)
== END 2024-03-11 08:27 | disposition home or self-care (01) ==
PROVIDERS: PCP Internal Medicine; Visit Provider Internal Medicine Nephrology
DX: I12.9 Hypertensive chronic kidney disease with stage 1 through stage 4 chronic kidney disease, or unspecified chronic kidney disease (principal); N18.31 Chronic kidney disease, stage 3a
CPT/HCPCS: 36415; 80069; 82570; 84156

== ENCOUNTER 2024-05-07 09:30 | Outpatient (RCR) | payer MEDICARE, OTHER, SELFPAY ==
--- NOTE | 2024-03-10 11:26 | PTOPEVAL1 ---
Assessment and note entered by Khadijah Goddard, PT Evaluation Information Assessment Status Evaluation Diagnosis unspecified inflammatory spondylopathy lumbar region s/p total hip replacement LLE Therapy conditions low back pain, pain in left hip weakness abnormal postures oth. abnormalities of gait and mobility Onset ~1 year Subjective Information Pt states back and hip didn't start bothering him until he fell on his belly last year. Reports his back is ate up with arthritis . 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 Pt was using a 2w-w because hip was so bad, recently was able to stop using cane in RUE. Reports is sleeping in recliner Reported Pain Level Pain Score 2: Self Report Assessment PT Clinical Summary Pt presents for lumbar back pain but is also approx 4 weeks post-op left total hip replacement (02/10/2024). Pt reports greatest pain is with standing and walking, requires use of cane to offload back during ambulation, does not report N/ T or radicular symptoms. Standing postures demo multiple alignment deficits including forward hip flexion, scoliotic curvatures with possible leg length discrepancy, and decreased knee extension ricardo. Also demos abnormal gait patterns, increased reliance on UEs with 5x sit>stand testing, and decreased flexibility and strength in surrounding musculature. Pt will benefit form physical therapy to address deficits, improve pain and improve function for increased safe and functional independence. Plan of Care Interventions Electrical Stimulation,Gait Training,Hot Pack/Cold Pack,Manual Therapy,Mechanical Traction,Neuro Re- education,Patient/Caregiver Educati,Therapeutic Activities,Therapeutic Exercise,Self-Care/Home Management PT Services Indicated Yes Treatment Frequency and 2x weekly x 20 visits Duration These treatments will address the objective and functional deficits as defined above. The patient will be advanced safely and appropriately in order for the patient to progress towards his/her prior level of function. Additional exercises will be introduced and as well as a comprehensive home exercise program upon discharge, if needed, ?to ensure carryover of functional gains achieved in the clinic. This treatment plan has been reviewed and agreement upon by the patient.
--- NOTE | 2024-03-10 11:28 | OPREHPOC ---
Outpatient Therapy Plan of Care This is a Multidisciplinary Plan of Care that may contain components documented by all disciplines (PT, OT, and ST.) PT Problem 1 PT Problem #1 Knowledge Deficit PT Goal 1 Goal Pt will be independent in HEP Pt will verbalize understanding of diagnosis and prognosis Target Visit 10 PT Problem 2 PT Problem #2 Pain PT Goal 1 Goal Pt will report lowest pain rating at 0/10 to show improvement in overall discomfort Target Visit 10 PT Goal 2 Goal Pt will report greatest pain level at 3/10 or less to improve ADLs and activities Target Visit 20 PT Problem 3 PT Problem #3 Impaired Flexibility PT Goal 1 Goal Pt will demo improved hip flexor flexibility ricardo in order to improve upright postures with less pull on lumbar spine Target Visit 10 PT Goal 2 Goal Pt will demo ability to perform active ROM hip extension ricardo of 5 degrees to support improved mobility for ambulation and upright postures. Target Visit 20 PT Problem 4 PT Problem #4 Impaired Strength PT Goal 1 Goal Pt will demo gluteus shawanda strength of 3/5 ricardo to support hip and lumbar spine Target Visit 10 PT Goal 2 Goal Pt will demo gluteus medius strength of LLE 3/5 to support hip and lumbar spine stability
--- NOTE | 2024-04-07 15:21 | PTOPPROG ---
Assessment and note entered by Khadijah Goddard, PT Evaluation Information Assessment Status Progress Diagnosis unspecified inflammatory spondylopathy ICD-10 Condition Codes (PT) Pain in low back M54.50,Pain in left hip M25.552 unspec. abnormalities of gait and mobility R26.9 Onset ~1 year Subjective Information Pt states that he saw doctor on friday for a follow up of his L hip DENISA and the MD was pleased with the progress. He does not have to go back to surgeon for a year. He states that the hip pain and back pain are very low and only get aggravated when doing yard work like weed whacking. Pt states he plans on being more consistent exercising in the pool and has been doing the exercise on land as well. Assessment PT Clinical Summary Pt reports to physical therapy for re-evaluation. He states that the back pain has gotten much better and is down to the his baseline stiffness. He showed improvements in lumbar ROM with no increase in pain. Post surgical deficits persist from L DENISA. Deficits include lacking bilateral hip extension causing excessive forward lean during gait assessment (2 min walk test). Decreased hip strength and pelvis stability shown with hip drop during gait. Pt was educated on HEP, cryotherapy, walking program and exercising in his swimming pool. Skilled physical therapy is necessary to address post surgical deficits in L hip and monitor changes in low back pain. Plan of Care Interventions Electrical Stimulation,Gait Training,Hot Pack/Cold Pack,Manual Therapy,Mechanical Traction,Neuro Re- education,Patient/Caregiver Educati,Therapeutic Activities,Therapeutic Exercise,Self-Care/Home Management PT Services Indicated Yes Treatment Frequency and 1x per week for 6 weeks Duration These treatments will address the objective and functional deficits as defined above. The patient will be advanced safely and appropriately in order for the patient to progress towards his/her prior level of function. Additional exercises will be introduced and as well as a comprehensive home exercise program upon discharge, if needed, ?to ensure carryover of functional gains achieved in the clinic. This treatment plan has been reviewed and agreement upon by the patient.
--- NOTE | 2024-05-06 09:18 | PCPTNOTE ---
Pt was called yesterday when was late for appointment, stated he was getting his car worked on. Pt r/s to later in the day then called just before that appt and was unable to make it.
--- NOTE | 2024-05-07 16:55 | PTOPDC ---
Assessment and note entered by Khadijah Goddard, PT Evaluation Information Assessment Status Discharge Diagnosis unspecified inflammatory spondylopathy ICD-10 Condition Codes (PT) Pain in low back M54.50,Pain in left hip M25.552 Onset ~1 year Subjective Information Pt reports now the hip is no problem but doesn't feel comfortable going up ladder, a 6 foot and an 8 ft. Feels ok with 6 ft ladder, but not 8 foot ladder. [place] whacking is doing better, has changed the way he is doing it. Does his exercises 2x daily. Feels 60% back to normal. Still things can do just not as long. Dragging brush takes a little longer . Wants to get back on his outside bike. but will start on the stationary bike Reported Pain Level Pain Score 1: Self Report Assessment PT Clinical Summary Pt has done very well with his back pain. He no longer uses AD to ambulate, and has returned to high level activities such as carrying bags of mulch. Granted these very high level activities cause increased discomfort however he reports this is mitigated with his stretching and exercise. He cont to demo abnormal gait and postures, weak musculature and decreased flexibility, but reports he is able to walk with his dog 1.5 miles daily without increased back pain. Pt has been educated on benefits of continuing therapy to continue stretching, strengthening, and gait training, though he opts out of therapy at this time. He is pleased with his progress and has been educated on returning to therapy in the future if necessary. Plan of Care PT Services Indicated No
== END 2024-05-20 10:48 | disposition home or self-care (01) ==
LOC: ANHHIPT 09:30
PROVIDERS: PCP Internal Medicine; Referring Provider Orthopaedic Surgery; Visit Provider Orthopaedic Surgery
DX: M46.96 Unspecified inflammatory spondylopathy, lumbar region (principal)
CPT/HCPCS: 97014; 97110; 97112; 97116; 97140; 97162; 97530; 97750; G0283

== ENCOUNTER 2024-05-19 09:19 | Outpatient (RCR) | payer MEDICARE, OTHER, SELFPAY ==
[2024-03-18 10:44] LABS: INR 4.9; Prothrombin Time 45.8 Seconds (11.1-14.7)
[2024-04-22 10:24] LABS: INR 2.8
[2024-05-19 09:48] LABS: INR 3.1; Prothrombin Time 32.3 Seconds (11.1-14.7)
== END 2024-06-16 23:59 | disposition home or self-care (01) ==
LOC: ANHLAB 09:19
PROVIDERS: PCP Internal Medicine; Visit Provider Specialist
DX: Z51.81 Encounter for therapeutic drug level monitoring (principal); I48.0 Paroxysmal atrial fibrillation; Z79.01 Long term (current) use of anticoagulants
CPT/HCPCS: 36415; 85610

== ENCOUNTER 2024-07-06 09:24 | Outpatient (CLI) | payer MEDICARE, OTHER, SELFPAY ==
[2024-07-06 09:38] LABS: Basophils Absolute Auto 0.1 K/mm3 (0.0-0.1); Basophils Percent Auto 0.7 % (0.2-1.2); Eosinophils Absolute Auto 0.5 K/mm3 (0-0.3); Eosinophils Percent Auto 6.6 % (0-4.4); Hematocrit 36.7 % (42.0-52.0); Hemoglobin 11.8 g/dL (14.0-18.0); Immature Granulocyte Absolute 0.02 K/mm3 (0.00-0.031); Immature Granulocyte Percent A 0.3 % (0-0.5); Lymphocytes Absolute Auto 1.06 K/mm3 (0.9-3.2); Lymphocytes Percent Auto 15.2 % (18.3-44.2); Mean Corpuscular HGB Conc 32.2 g/dl (32-36); Mean Corpuscular Hemoglobin 30.8 pg (26-34); Mean Corpuscular Volume 95.8 fl (80-100); Monocytes Absolute Auto 0.6 K/mm3 (0.1-0.6); Neutrophils Absolute Auto 4.8 K/mm3 (1.3-6.7); Neutrophils Percent Auto 69.2 % (45.5-73.1); Platelet Count Result 228 k/mm3 (150-375); Red Blood Count 3.83 M/mm3 (4.6-6.20); Red Cell Distribution Width 13.4 % (11.5-14.5)
[2024-07-06 11:13] LABS: Iron 62 ug/dL (49-181)
[2024-07-06 11:14] LABS: Anion Gap 9 mmol/L (4-12); Blood Urea Nitrogen 20 mg/dL (9-20); Carbon Dioxide 28 mmol/L (22-30); Chloride 104 mmol/L (98-107); Estimated Glomerular Filt Rate 53; Glucose 100 mg/dL (65-110); Potassium 4.3 mmol/L (3.4-5.0); Sodium 141 mmol/L (137-145)
[2024-07-06 11:32] LABS: Percent Iron Saturation 21 % (20-50)
[2024-07-06 12:23] LABS: Folic Acid 18.8 ng/mL (2.76->20)
== END 2024-07-06 09:25 | disposition home or self-care (01) ==
LOC: ANHLAB 09:26
PROVIDERS: Nurse Practitioner Family; PCP Family Medicine; Visit Provider Internal Medicine Hematology & Oncology
DX: D64.9 Anemia, unspecified (principal)
CPT/HCPCS: 36415; 80048; 80069; 82306; 82570; 82607; 82728; 82746; 83540; 83550; 83970; 84156; 85025

== ENCOUNTER 2024-07-06 10:03 | Outpatient (CLI) | payer MEDICARE, OTHER, SELFPAY ==
[2024-07-06 10:52] LABS: Creatinine Urine 205.4 mg/dL; Total Protein Urine Random 16 mg/dL; Ur Ttl Prot Creatinine Ratio 0.08 mg/mg (0-0.20)
[2024-07-06 11:02] LABS: Parathyroid Intact 42.4 pg/mL (14.5-75.2)
[2024-07-06 11:03] LABS: Anion Gap 7 mmol/L (4-12); Blood Urea Nitrogen 20 mg/dL (9-20); Calcium 9.2 mg/dL (8.4-10.2); Carbon Dioxide 29 mmol/L (22-30); Chloride 105 mmol/L (98-107); Estimated Glomerular Filt Rate 53; Glucose 96 mg/dL (65-110); Potassium 4.6 mmol/L (3.4-5.0); Sodium 141 mmol/L (137-145)
[2024-07-06 11:14] LABS: Vitamin D 25 Hydroxy 46.4 ng/mL
== END 2024-07-06 10:04 | disposition home or self-care (01) ==
LOC: ANHLAB 10:08
PROVIDERS: PCP Family Medicine; Visit Provider Internal Medicine Nephrology
DX: I12.9 Hypertensive chronic kidney disease with stage 1 through stage 4 chronic kidney disease, or unspecified chronic kidney disease (principal); N25.81 Secondary hyperparathyroidism of renal origin; E55.9 Vitamin D deficiency, unspecified; N18.31 Chronic kidney disease, stage 3a
CPT/HCPCS: 36415; 80069; 82306; 82570; 83970; 84156

== ENCOUNTER 2024-08-12 08:56 | Outpatient (RCR) | payer MEDICARE, OTHER, SELFPAY ==
[2024-07-06 10:47] LABS: INR 1.5; Prothrombin Time 18.6 Seconds (11.1-14.7)
[2024-08-12 09:42] LABS: INR 2.4; Prothrombin Time 27.1 Seconds (11.1-14.7)
== END 2024-10-04 23:59 | disposition home or self-care (01) ==
LOC: ANHLAB 08:56
PROVIDERS: PCP Family Medicine; Visit Provider Specialist
DX: Z51.81 Encounter for therapeutic drug level monitoring (principal); I48.0 Paroxysmal atrial fibrillation; Z79.01 Long term (current) use of anticoagulants
CPT/HCPCS: 36415; 85610